=== PATIENT | female | born 1990 | race Caucasian/White ===

== ENCOUNTER 2017-05-24 00:26 | Emergency (ER) | payer SELFPAY ==
[~2017-05-24] VITALS: Ht 165.1 cm; Wt 99.8 kg
[~2017-05-24 00:26] MED LIST: AMOX500C2 PO; CALC500T7 PO; DOCU100C37 PO; FAMO20TA5 PO; HYDR-3583 PO; HYDR99LO2 TP; IBP600T1 PO; IBUP-1780 PO; NITR-65 PO; ONDA-42 SL; OXYC-465 PO; PREN-53 PO; PREN1TAB39; TRM50T PO
[2017-05-24] MEDS ORDERED: KETOROLAC 30 MG/ML VIAL IVP STA (00:53)
[2017-05-24] MEDS ORDERED: LACTATED RINGERS 1,000 ML IV ONE (00:53)
[2017-05-24] MEDS ORDERED: ONDANSETRON 4 MG/2 ML (SDV) Z0FRAN IVP ONE (01:00)
[2017-05-24 01:14] LABS: BILIRUBIN,URINE NEGATIVE (NEGATIVE); CLARITY,URINE VERY CLOUDY; COLOR,URINE YELLOW; GLUCOSE, URINE (UA) NEGATIVE (NEGATIVE); KETONES,URINE NEGATIVE (NEGATIVE); LEUKOCYTE ESTERASE ,URINE 3+ (NEGATIVE); NITRITE,URINE NEGATIVE (NEGATIVE); PH,URINE 7 (5-9); PROTEIN,URINE NEGATIVE (NEGATIVE); UROBILINOGEN,URINE NORMAL (NORMAL)
[2017-05-24 01:16] LABS: BASOPHILS % (AUTO) 0 % (0-10); EOSINOPHILS # (AUTO) 0.3 10^3/uL (0.0-0.3); EOSINOPHILS % (AUTO) 2 % (0-10); HEMATOCRIT 41 % (35-52); HEMOGLOBIN 13.3 G/DL (11.5-16.0); LYMPHOCYTES % (AUTO) 30 % (12-44); MEAN CORPUSCULAR HEMOGLOBIN 28 PG (25-34); MEAN CORPUSCULAR HGB CONC 33 G/DL (32-36); MEAN CORPUSCULAR VOLUME 84 FL (80-99); MEAN PLATELET VOLUME 10.4 FL (7.4-10.4); MONOCYTES # (AUTO) 0.8 X 10^3 (0.0-1.0); MONOCYTES % (AUTO) 6 % (0-12); NEUTROPHILS # (AUTO) 8.2 X 10^3 (1.8-7.8); NEUTROPHILS % (AUTO) 62 % (42-75); PLATELET COUNT 325 10^3/uL (130-400); RED CELL DISTRIBUTION WIDTH 13.9 % (10.0-14.5); WHITE BLOOD COUNT 13.3 10^3/uL (4.3-11.0)
--- NOTE | 2017-05-24 01:26 | ED Abdominal Pain ---
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 NO CONTROLL PCP: DR. ESPINOSA Allergies and Home Medications Allergies Coded Allergies: No Known Drug Allergies (Unverified , 09/22/14) Home Medications No Active Prescriptions or Reported Meds Review of Systems Constitutional: no symptoms reported Respiratory: No Symptoms Reported, Denies Cough, Denies Shortness of Air Cardiovascular: No Symptoms Reported, Denies Chest Pain Gastrointestinal: See HPI, Abdominal Pain, Denies Constipated, Denies Diarrhea , Nausea, Denies Vomiting Genitourinary: No Symptoms Reported Musculoskeletal: no symptoms reported, No back pain Skin: no symptoms reported Psychiatric/Neurological: No Symptoms Reported Endocrine: No Symptoms Reported Hematologic/Lymphatic: No Symptoms Reported Past Veruwab-Weekvv-Smadvf Hx Patient Social History Alcohol Use: Occasionally Uses Recreational Drug Use: No Smoking Status: Current Everyday Smoker (1 PPD) Type Used: Cigarettes 2nd Hand Smoke Exposure: Yes Recent Foreign Travel: No Contact w/Someone Who Travel: No Recent Infectious Disease Expo: No Recent Hopitalizations: No Immunizations Up To Date Tetanus Booster (TDap): Less than 5yrs Seasonal Allergies Seasonal Allergies: No Surgeries History of Surgeries: Yes (D&C; X 2) Surgeries: Section Respiratory History of Respiratory Disorde: No Cardiovascular History of Cardiac Disorders: No Neurological History of Neurological Disord: No Reproductive System : No Last Menstrual Period: May 03, 2017 Hx : 4 Hx Para: 2 Hx Total # of Abortions (Spona: 2 (WITH D&C X 1) Hx Reproductive Disorders: No Female Reproductive Disorders: Denies Genitourinary History of Genitourinary Disor: No Gastrointestinal History of Gastrointestinal Di: No Musculoskeletal History of Musculoskeletal Dis: No Endocrine History of Endocrine Disorders: No HEENT History of HEENT Disorders: No Cancer History of Cancer: No Psychosocial History of Psychiatric Problem: No Integumentary History of Skin or Integumenta: No Blood Transfusions History of Blood Disorders: No Family Medical History Significant Family History: No Pertinent Family Hx Family Medial History: Alcoholism grandparents Cardiovascular disease grandparents Diabetes mellitus grandparents FH: breast cancer 19 MOTHER Hypertension grandparents Physical Exam Vital Signs VS - Last 72 Hours, by Label 05/24/17 05/24/17 00:40 01:05 Temp 97.4 97.4 Pulse 95 Resp 18 B/P (MAP) 148/98 (115) Pulse Ox 99 O2 Delivery Room Air Capillary Refill : Less Than 3 Seconds General Appearance: obese, other (ROCKING BACK AND FORTH HOLDING RUQ) HEENT: PERRL/EOMI Respiratory: normal breath sounds, no respiratory distress, no accessory muscle use Cardiovascular: regular rate, rhythm, no murmur Gastrointestinal: normal bowel sounds, soft, no organomegaly, no pulsatile mass , No distended, No guarding, No rebound, tenderness (RUQ), No hernia, No mass Extremities: normal inspection Back: normal inspection, no CVA tenderness 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, no motor/sensory deficits, alert, normal mood/affect, oriented x 3 Skin: normal color, warm/dry, No rash Progress/Results/Core Measures Results/Orders Lab Results Laboratory Tests Test 05/24/17 01:00 05/24/17 01:05 Range/Units Urine Color YELLOW Urine Clarity VERY CLOUDY H Urine pH 7 5-9 Urine Specific [place] 1.015 L 1.016-1.022 Urine Protein NEGATIVE NEGATIVE Urine Glucose (UA) NEGATIVE NEGATIVE Urine Ketones NEGATIVE NEGATIVE Urine Nitrite NEGATIVE NEGATIVE Urine Bilirubin NEGATIVE NEGATIVE Urine Urobilinogen NORMAL NORMAL MG/DL Urine Leukocyte Esterase 3+ H NEGATIVE Urine RBC (Auto) NEGATIVE NEGATIVE Urine RBC NONE /HPF Urine WBC 2-5 /HPF Urine Squamous Epithelial Cells >50 H /HPF Urine Crystals NONE /LPF Urine Bacteria FEW H /HPF Urine Casts NONE /LPF Urine Mucus LARGE H /LPF Urine Culture Indicated NO White Blood Count 13.3 H 4.3-11.0 10^3/uL Red Blood Count 4.80 4.35-5.85 10^6/uL Hemoglobin 13.3 11.5-16.0 G/DL Hematocrit 41 35-52 % Mean Corpuscular Volume 84 80-99 FL Mean Corpuscular Hemoglobin 28 25-34 PG Mean Corpuscular Hemoglobin Concent 33 32-36 G/DL Red Cell Distribution Width 13.9 10.0-14.5 % Platelet Count 325 130-400 10^3/uL Mean Platelet Volume 10.4 7.4-10.4 FL Neutrophils (%) (Auto) 62 42-75 % Lymphocytes (%) (Auto) 30 12-44 % Monocytes (%) (Auto) 6 0-12 % Eosinophils (%) (Auto) 2 0-10 % Basophils (%) (Auto) 0 0-10 % Neutrophils # (Auto) 8.2 H 1.8-7.8 X 10^3 Lymphocytes # (Auto) 4.0 1.0-4.0 X 10^3 Monocytes # (Auto) 0.8 0.0-1.0 X 10^3 Eosinophils # (Auto) 0.3 0.0-0.3 10^3/uL Basophils # (Auto) 0.0 0.0-0.1 10^3/uL Sodium Level 140 135-145 MMOL/L Potassium Level 4.1 3.6-5.0 MMOL/L Chloride Level 108 H 98-107 MMOL/L Carbon Dioxide Level 21 21-32 MMOL/L Anion Gap 11 5-14 MMOL/L Blood Urea Nitrogen 12 7-18 MG/DL Creatinine 0.75 0.60-1.30 MG/DL Estimat Glomerular Filtration Rate > 60 BUN/Creatinine Ratio 16 Glucose Level 117 H 70-105 MG/DL Calcium Level 9.4 8.5-10.1 MG/DL Total Bilirubin 0.3 0.1-1.0 MG/DL Aspartate Amino Transf (AST/SGOT) 14 5-34 U/L Alanine Aminotransferase (ALT/SGPT) 15 0-55 U/L Alkaline Phosphatase 86 40-136 U/L Total Protein 7.1 6.4-8.2 GM/DL Albumin 3.9 3.2-4.5 GM/DL Amylase Level 53 25-125 U/L Lipase 26 8-78 U/L My Orders Orders - AMIRAH NUGENT DO Saline Lock/Iv-Start (05/24/17 00:53) Urine Bedside (05/24/17 00:53) Ct Abdomen/Pelvis W (05/24/17 00:53) Amylase (05/24/17 00:53) Cbc With Automated Diff (05/24/17 00:53) Comprehensive Metabolic Panel (05/24/17 00:53) Lipase (05/24/17 00:53) Ua Culture If Indicated (05/24/17 00:53) Abdomen/Kub 1view (05/24/17 00:53) Lactated Ringers (Lr 1000 Ml Iv Solution (05/24/17 00:53) Ondansetron Injection (Zofran Injectio (05/24/17 01:00) Ketorolac Injection (Toradol Injection) (05/24/17 00:53) Rx-Ondansetron Po (Rx-Zofran Po) (05/24/17 02:05) Rx-Hyoscyamine Tab (Rx-Levsin Sl) (05/24/17 02:05) Rx-Hydrocodone/Apap 5-325 Mg (Rx-Vicodin (05/24/17 02:15) Medications Given in ED Current Medications Medications Dose Ordered Sig/Francisco Javier Route Start Time Stop Time Status Last Admin Dose Admin Lactated Ringer's 1,000 ml @ 0 mls/hr Q0M ONCE IV 05/24/17 00:53 05/24/17 00:55 DC 05/24/17 01:05 0 MLS/HR Ondansetron HCl 4 mg ONCE ONCE IVP 05/24/17 01:00 05/24/17 01:01 DC 05/24/17 01:05 4 MG Vital Signs/I&O Vital Sign - Last 12Hours 05/24/17 05/24/17 00:40 01:05 Temp 97.4 97.4 Pulse 95 Resp 18 B/P (MAP) 148/98 (115) Pulse Ox 99 O2 Delivery Room Air Blood Pressure Mean: 115 Point of Care Testing Urine -Bedside: Negative Progress Note : Progress Note SYMPTOMS COMPLETELY RESOLVED WITH TORADOL AND ZOFRAN ABDOMEN IS NO LONGER TENDER Diagnostic Imaging Comments KUB--NO ACUTE PROCESS, PENDING RADIOLOGIST REVIEW CT ABDOMEN/PELVIS--CHOLELITHIASIS WITH MILD PERICHOLECYSTIC STRANDING. PER [facility] VIA FAX @ [phone] Reviewed: Reviewed by Me Departure Impression Impression: Primary Impression: Cholelithiasis Disposition: HOME, SELF-CARE Condition: Improved Departure-Patient Inst. Referrals: JANESSA POWELL MD, DANIEL J MD (PCP/Family) Primary Care Physician Patient Instructions: Gallstones (DC) Add. Discharge Instructions: CLEAR LIQUIDS TODAY--WATER, BROTH, JELLO, GATORADE TOMORROW IF YOU ARE BETTER, ADD BRATS DIET TO CLEAR LIQUIDS--BANANAS, RICE, APPLESAUCE, TOAST, SALTINES FOLLOW UP WITH DR. POWELL OR SURGEON OF CHOICE NEXT WEEK FOR FURTHER CARE RETURN TO ER IF WORSE All discharge instructions reviewed with patient and/or family. Voiced understanding. Scripts Hydrocodone Bit/Acetaminophen (Hydrocodone/Acetaminophen 5/325mg Tablet) 1 Tab Tab 1 EACH PO Q4H, #20 TAB Prov: AMIRAH NUGENT DO 05/24/17 Hyoscyamine Sulfate (Levsin-Sl) 0.125 Mg Tab.subl 1-2 TAB SL Q4H for Abdominal Pain, #10 TAB Prov: AMIRAH NUGENT K DO 05/24/17 Ondansetron (Zofran Odt) 4 Mg Tab.rapdis 4 MG PO Q4H for Nausea/Vomiting, #10 TAB Prov: RAFFIVERONICAA K DO 05/24/17 Pantoprazole Sodium (Protonix) 40 Mg Tablet.dr 40 MG PO DAILY, #15 TAB Prov: VERONICA NUGENTA K DO 05/24/17 RAFFIAMIRAH K May 24, 2017 01:26
[2017-05-24 01:30] LABS: BACTERIA,URINE FEW /HPF; SQUAMOUS EPITHELIAL CELL,UR >50 /HPF
[2017-05-24 01:34] LABS: ALANINE AMINOTRANSFERASE 15 U/L (0-55); ALBUMIN 3.9 GM/DL (3.2-4.5); ALKALINE PHOSPHATASE 86 U/L (40-136); AMYLASE 53 U/L (25-125); BILIRUBIN,TOTAL 0.3 MG/DL (0.1-1.0); BUN/CREATININE RATIO 16; CALCIUM 9.4 MG/DL (8.5-10.1); CARBON DIOXIDE 21 MMOL/L (21-32); CHLORIDE 108 MMOL/L (98-107); CREATININE SERUM 0.75 MG/DL (0.60-1.30); GFR ESTIMATED > 60; GLUCOSE 117 MG/DL (70-105); LIPASE 26 U/L (8-78); POTASSIUM 4.1 MMOL/L (3.6-5.0); SODIUM 140 MMOL/L (135-145); TOTAL PROTEIN 7.1 GM/DL (6.4-8.2)
[2017-05-24] MEDS ORDERED: RX-ONDANSETRON 4 MG ODT (ZOFRAN) PPK #4 PO STA (02:05)
[2017-05-24] MEDS ORDERED: RX-HYOSCYAMINE 0.125 MG SL (LEVSIN) PPK#6 SL STA (02:05)
[2017-05-24] MEDS ORDERED: ONDA4TAB8 PO (02:09)
[2017-05-24] MEDS ORDERED: PANT40TA2 PO (02:09)
[2017-05-24] MEDS ORDERED: HYOS0.1283 SL (02:09)
[2017-05-24] MEDS ORDERED: ACHD5005 PO (02:09)
[2017-05-24] MEDS ORDERED: RX-HYDROCODONE/APAP 5/325 MG #4 TAB PK PO PRN (02:15)
[2017-05-24 02:22] VITALS: BP 132/94
--- NOTE | 2017-05-24 07:12 | Diagnostic Imaging Report ---
INDICATION: Right upper quadrant pain. FINDINGS: The lung bases are clear. The bowel gas pattern is nonspecific. There is no free air. There are no abnormal abdominal calcifications. IMPRESSION: Nonspecific bowel gas pattern Dictated by: Dictated on workstation # [id number]
--- NOTE | 2017-05-24 07:48 | Diagnostic Imaging Report ---
PROCEDURE: CT abdomen and pelvis with contrast. TECHNIQUE: Multiple contiguous axial images were obtained through the abdomen and pelvis after administration of intravenous contrast. INDICATION: Right upper quadrant pain. Study compared 05/17/2007. FINDINGS: There appears to be stones within the gallbladder lumen. While the gallbladder is not pathologically dilated, the appearance raises the question of some wall thickening and there may be very mild pericholecystic edema. Acute cholecystitis in the appropriate clinical scenario could not be excluded. Consider gallbladder ultrasound as further evaluation. There is, however, no bile duct dilatation. The pancreas is unremarkable. The kidneys are unobstructed. The spleen and adrenals negative. There is no bowel obstruction. The appendix visualized and normal. There is no diverticulitis. There is collapsing and involuting follicle in the right ovary measuring 1.9 cm. Left adnexa and urinary bladder normal. Some shotty lymph nodes in the bilateral inguinal canals with no suspicious abdominal pelvic mesenteric or retroperitoneal nodes. No ascites, abscess, hematoma or fluid collection. IMPRESSION: 1. Stones within the gallbladder, questionable findings for mural edema and pericholecystic inflammation. Acute cholecystitis in the appropriate scenario could not be excluded. Consider targeted ultrasound. No bile duct dilatation. 2. No other potential acute finding was revealed at the study. Dictated by: Dictated on workstation # [id number]
== END 2017-05-24 02:16 | disposition home or self-care (01) ==
LOC: EDUNIT# 00:26 → ER 00:28
DX: K80.20 Calculus of gallbladder without cholecystitis without obstruction (principal); F17.210 Nicotine dependence, cigarettes, uncomplicated; Z87.59 Personal history of other complications of pregnancy, childbirth and the puerperium; Z80.3 Family history of malignant neoplasm of breast; Z82.49 Family history of ischemic heart disease and other diseases of the circulatory system
CPT/HCPCS: 36415; 74018; 74177; 80053; 81000; 82150; 83690; 84703; 85025; 96361; 96374; 96375

== ENCOUNTER 2018-04-12 12:08 | Emergency (ER) | payer SELFPAY ==
[~2018-04-12] VITALS: Ht 165.1 cm; Wt 99.8 kg
[~2018-04-12 12:08] MED LIST changes: +ACHD5005 PO; +HYOS0.1283 SL; +ONDA4TAB8 PO; +PANT40TA2 PO
--- NOTE | 2018-04-12 12:30 | ED EENT ---
History of Present Illness General Chief Complaint: Dental Problems/Pain Stated Complaint: TOOTH PAIN Source: patient Exam Limitations: no limitations History of Present Illness Date Seen by Provider: Apr 12, 2018 Time Seen by Provider: 12:30 Initial Comments Patient is a 27-year-old female who presents to the emergency room with complaints of left upper dental pain that started 2 months ago. She has been seen by [facility] and was told that she had a fractured tooth but they could not pull it until mid-March. She's gotten appointment with Dr. Romero on 04/14/18 to have the tooth hopefully pulled. She just reports that the pain is becoming unbearable. Denies any drainage, swelling, redness to the gums. Timing/Duration: other Location: dental Prearrival Treatment: no prearrival treatment Associated Symptoms: tooth pain Allergies and Home Medications Allergies Coded Allergies: No Known Drug Allergies (Unverified , 09/22/14) Home Medications Hydrocodone Bit/Acetaminophen 1 Tab Tab, 1 EACH PO Q4H Prescribed by: AMIRAH NUGENT on 05/24/17208 Hyoscyamine Sulfate 0.125 Mg Tab.subl, 1-2 TAB SL Q4H Prescribed by: AMIRAH NUGENT on 05/24/17208 Ondansetron 4 Mg Tab.rapdis, 4 MG PO Q4H Prescribed by: AMIRAH NUGENT on 05/24/17208 Pantoprazole Sodium 40 Mg Tablet.dr, 40 MG PO DAILY Prescribed by: AMIRAH NUGENT on 05/24/17208 Patient Home Medication List Home Medication List Reviewed: Yes Review of Systems Review of Systems Constitutional: no symptoms reported, see HPI Mouth: see HPI, pain All Other Systems Reviewed Negative Unless Noted: Yes Past Khkhprr-Jhwtix-Vtorrp Hx Past Med/Social Hx: Reviewed Nursing Past Med/Soc Hx Patient Social History Type Used: Cigarettes 2nd Hand Smoke Exposure: Yes Recent Hopitalizations: No Immunizations Up To Date Tetanus Booster (TDap): Less than 5yrs Seasonal Allergies Seasonal Allergies: No Past Medical History Surgeries: Yes (D&C; X 2) Section Respiratory: No Cardiac: No Neurological: No Reproductive Disorders: No Female Reproductive Disorders: Denies Genitourinary: No Gastrointestinal: No Musculoskeletal: No Endocrine: No HEENT: No Cancer: No Psychosocial: No Integumentary: No Blood Disorders: No Family Medical History Reviewed Nursing Family Hx Alcoholism grandparents Cardiovascular disease grandparents Diabetes mellitus grandparents FH: breast cancer 19 MOTHER Hypertension grandparents No Pertinent Family Hx Physical Exam Vital Signs Vital Signs - First Documented 04/12/18 12:18 Temp 79.4 Pulse 82 Resp 20 B/P (MAP) 139/96 (110) Pulse Ox 98 O2 Delivery Room Air Height, Weight, BMI Height: 5'5.00" Weight: 220lbs. 0oz. 99.438450vn; 38.0 BMI Method:Stated General Appearance: WD/WN, no apparent distress Mouth/Throat: pharynx normal, dental tenderness (see images/ fractured tooth) Cardiovascular: normal peripheral pulses, regular rate, rhythm, no edema, no gallop, no JVD, no murmur Respiratory: chest non-tender, lungs clear, normal breath sounds, no respiratory distress, no accessory muscle use Neurologic/Psychiatric: alert, oriented x 3 Skin: normal color, warm/dry Progress/Results/Core Measures Results/Orders My Orders Vital Signs/I&O Departure Impression Primary Impression: Fracture of tooth Disposition: 01 HOME, SELF-CARE Condition: Stable/Unchanged Departure-Patient Inst. Decision time for Depature: 12:36 Referrals: WALLACE ESPINOSA MD (PCP/Family) Primary Care Physician Patient Instructions: Fractured Tooth (DC) Add. Discharge Instructions: Keep your appointment with Dr. Romero as scheduled. Use the lidocaine soaked gauze as needed for comfort being sure not to choke or bite your tongue or gums if they become numb. Return back to the emergency room for any worsening symptoms. All discharge instructions reviewed with patient and/or family. Voiced understanding. Images Mouth/Nose 1 - Fracture Tooth ROBERT MARTINEZ Apr 12, 2018 12:30
[2018-04-12] MEDS ORDERED: LIDOCAINE 2% VISCOUS 15 ML UDC PO ONE (12:45)
[2018-04-12] MEDS ORDERED: KETOROLAC 60 MG/2 ML VIAL IM ONE (12:45)
[2018-04-12 13:28] VITALS: BP 139/96
== END 2018-04-12 13:28 | disposition home or self-care (01) ==
LOC: EDUNIT# 12:08 → ER 12:09
DX: S02.5XXA Fracture of tooth (traumatic), initial encounter for closed fracture (principal); Z77.22 Contact with and (suspected) exposure to environmental tobacco smoke (acute) (chronic); Z98.890 Other specified postprocedural states; Z82.49 Family history of ischemic heart disease and other diseases of the circulatory system; Z80.3 Family history of malignant neoplasm of breast; X58.XXXA Exposure to other specified factors, initial encounter
CPT/HCPCS: 99284

== ENCOUNTER 2019-04-30 03:55 | Emergency (ER) | payer SELFPAY ==
[~2019-04-30] VITALS: Ht 165 cm; Wt 100.0 kg
[2019-04-30] MEDS ORDERED: LACTATED RINGERS 1,000 ML IV ONE (04:24)
[2019-04-30] MEDS ORDERED: FAMOTIDINE 20MG/2ML IV (PEPCID) IV STA (04:37)
[2019-04-30 04:39] LABS: BASOPHILS % (AUTO) 0 % (0-10); EOSINOPHILS # (AUTO) 0.1 10^3/uL (0.0-0.3); EOSINOPHILS % (AUTO) 2 % (0-10); HEMATOCRIT 40 % (35-52); HEMOGLOBIN 13.2 G/DL (11.5-16.0); LYMPHOCYTES # (AUTO) 2.1 X 10^3 (1.0-4.0); LYMPHOCYTES % (AUTO) 37 % (12-44); MEAN CORPUSCULAR HEMOGLOBIN 28 PG (25-34); MEAN CORPUSCULAR HGB CONC 33 G/DL (32-36); MEAN CORPUSCULAR VOLUME 84 FL (80-99); MEAN PLATELET VOLUME 10.4 FL (7.4-10.4); MONOCYTES # (AUTO) 0.5 X 10^3 (0.0-1.0); MONOCYTES % (AUTO) 9 % (0-12); NEUTROPHILS # (AUTO) 2.9 X 10^3 (1.8-7.8); NEUTROPHILS % (AUTO) 52 % (42-75); PLATELET COUNT 209 10^3/uL (130-400); RED CELL DISTRIBUTION WIDTH 14.1 % (10.0-14.5); WHITE BLOOD COUNT 5.6 10^3/uL (4.3-11.0)
--- NOTE | 2019-04-30 04:43 | ED General ---
General Chief Complaint: General Problems/Pain Stated Complaint: UPPER ABD PAIN, COUGH Nursing Triage Note: PT PRESENTS TO THE ED C/O UPPER ABD. PAIN AND GENERALIZED MALAISE FOR THE LAST TWO WEEKS THAT IS INTERMITTENT. PT STATES HER DAUGHTER WAS RECENTLY DIAGNOSED WITH FLU TYPE B. STATES SHE HAS SIMILAR ABD. PAIN ONE YEAR AGO AND WAS TOLD HER GALBLADDER WOULD NEED TO BE REMOVED, BUT NEVER FOLLOWED UP AFTER THAT Nursing Sepsis Screen: No Definite Risk Source of Information: Patient Exam Limitations: No Limitations History of Present Illness Date Seen by Provider: Apr 30, 2019 Time Seen by Provider: 04:26 Initial Comments Here with report of fever, chills, body aches, runny nose, cough and now with epigastric abdominal pain. Has history of gallbladder disease and HIDA scan that showed gallbladder was low functioning. She has not elected to have anything done with the gallbladder yet due to cost. So far she has done okay but now she is hurting. She states that her child was diagnosed with influenza B last week. There is she believes that she has it. Onset of symptoms was Thursday, 3 days ago. She has been taking cold medicine to help with the symptoms, which has helped. Tonight she had abdominal pain and take ibuprofen that helped a little bit of she got worried and presented to the ER. She does admit that she has quite a bit of mucus in his swallowing a fair amount of it due to this illness. Timing/Duration: 2-3 Days, Getting Worse Severity: Moderate Modifying Factors: improves with Medication Associated Systoms: Cough, Fever/Chills; No Nausea/Vomiting, No Shortness of Air, No Weakness Allergies and Home Medications Allergies Coded Allergies: No Known Drug Allergies (Unverified , 09/22/14) Home Medications Hydrocodone Bit/Acetaminophen 1 Tab Tab, 1 EACH PO Q4H Prescribed by: AMIRAH NUGENT on 05/24/17208 Hyoscyamine Sulfate 0.125 Mg Tab.subl, 1-2 TAB SL Q4H Prescribed by: AMIRAH NUGENT on 05/24/17208 Ondansetron 4 Mg Tab.rapdis, 4 MG PO Q4H Prescribed by: AMIRAH NUGENT on 05/24/17208 Pantoprazole Sodium 40 Mg Tablet.dr, 40 MG PO DAILY Prescribed by: AMIRAH NUGENT on 05/24/17208 Patient Home Medication List Home Medication List Reviewed: Yes Review of Systems Review of Systems Constitutional: see HPI, chills, fever EENTM: nose congestion, throat pain Respiratory: cough; No short of breath Cardiovascular: no symptoms reported Gastrointestinal: abdominal pain (epigastric); No nausea, No vomiting Genitourinary: no symptoms reported Musculoskeletal: see HPI, muscle pain; No muscle weakness Skin: no symptoms reported Psychiatric/Neurological: No Symptoms Reported Past Gcrlwlu-Ujffkj-Zuagfn Hx Past Med/Social Hx: Reviewed Nursing Past Med/Soc Hx Patient Social History Alcohol Use: Occasionally Uses Alcohol Beverage of Choice: Beer Recreational Drug Use: No Smoking Status: Current Everyday Smoker Type Used: Cigarettes 2nd Hand Smoke Exposure: Yes Recent Foreign Travel: No Contact w/Someone Who Travel: No Recent Infectious Disease Expo: No Recent Hopitalizations: No Immunizations Up To Date Tetanus Booster (TDap): Less than 5yrs PED Vaccines UTD: Yes Seasonal Allergies Seasonal Allergies: No Past Medical History Surgeries: Yes (D&C; X 2) Section Respiratory: No Cardiac: No Neurological: No : No Last Menstrual Period: Apr 15, 2019 Reproductive Disorders: No Female Reproductive Disorders: Denies Genitourinary: No Gastrointestinal: No Musculoskeletal: No Endocrine: No HEENT: No Cancer: No Psychosocial: No Integumentary: No Blood Disorders: No Family Medical History Reviewed Nursing Family Hx Alcoholism grandparents Cardiovascular disease grandparents Diabetes mellitus grandparents FH: breast cancer 19 MOTHER Hypertension grandparents No Pertinent Family Hx Physical Exam Vital Signs Vital Signs - First Documented 04/30/19 04:13 Temp 36.8 Pulse 87 Resp 20 B/P (MAP) 155/97 (116) Pulse Ox 99 O2 Delivery Room Air Capillary Refill : Less Than 3 Seconds Height, Weight, BMI Height: 5'5.00" Weight: 220lbs. 0oz. 99.178838pa; 36.00 BMI Method:Stated General Appearance: No Apparent Distress, WD/WN HEENT: PERRL/EOMI, Pharyngeal Erythema, Other (bilateral nasal congestion with clear rhinorrhea moderate erythema) Neck: Non Tender, Supple Respiratory: Lungs Clear, Normal Breath Sounds Cardiovascular: Regular Rate, Rhythm, No Murmur Gastrointestinal: Normal Bowel Sounds, Non Tender, Soft Neurologic/Psychiatric: Alert, Oriented x3 Skin: Normal Color, Warm/Dry Progress/Results/Core Measures Suspected Sepsis Recent Fever Within 48 Hours: No Infection Criteria Present: None New/Unexplained Altered Menta: No Sepsis Screen: No Definite Risk SIRS Temperature: Pulse: 87 Respiratory Rate: 20 Laboratory Tests 04/30/19 04:30: White Blood Count 5.6 Blood Pressure 155 /97 Mean: 116 Laboratory Tests 04/30/19 04:30: Creatinine 0.77, Platelet Count 209, Total Bilirubin 0.3 Results/Orders Lab Results Laboratory Tests Test 04/30/19 04:30 Range/Units White Blood Count 5.6 4.3-11.0 10^3/uL Red Blood Count 4.78 4.35-5.85 10^6/uL Hemoglobin 13.2 11.5-16.0 G/DL Hematocrit 40 35-52 % Mean Corpuscular Volume 84 80-99 FL Mean Corpuscular Hemoglobin 28 25-34 PG Mean Corpuscular Hemoglobin Concent 33 32-36 G/DL Red Cell Distribution Width 14.1 10.0-14.5 % Platelet Count 209 130-400 10^3/uL Mean Platelet Volume 10.4 7.4-10.4 FL Neutrophils (%) (Auto) 52 42-75 % Lymphocytes (%) (Auto) 37 12-44 % Monocytes (%) (Auto) 9 0-12 % Eosinophils (%) (Auto) 2 0-10 % Basophils (%) (Auto) 0 0-10 % Neutrophils # (Auto) 2.9 1.8-7.8 X 10^3 Lymphocytes # (Auto) 2.1 1.0-4.0 X 10^3 Monocytes # (Auto) 0.5 0.0-1.0 X 10^3 Eosinophils # (Auto) 0.1 0.0-0.3 10^3/uL Basophils # (Auto) 0.0 0.0-0.1 10^3/uL Sodium Level 139 135-145 MMOL/L Potassium Level 3.8 3.6-5.0 MMOL/L Chloride Level 108 H 98-107 MMOL/L Carbon Dioxide Level 20 L 21-32 MMOL/L Anion Gap 11 5-14 MMOL/L Blood Urea Nitrogen 4 L 7-18 MG/DL Creatinine 0.77 0.60-1.30 MG/DL Estimat Glomerular Filtration Rate > 60 BUN/Creatinine Ratio 5 Glucose Level 103 70-105 MG/DL Calcium Level 9.7 8.5-10.1 MG/DL Corrected Calcium 9.7 8.5-10.1 MG/DL Total Bilirubin 0.3 0.1-1.0 MG/DL Aspartate Amino Transf (AST/SGOT) 19 5-34 U/L Alanine Aminotransferase (ALT/SGPT) 19 0-55 U/L Alkaline Phosphatase 75 40-136 U/L C-Reactive Protein High Sensitivity 1.45 H 0.00-0.50 MG/DL Total Protein 6.8 6.4-8.2 GM/DL Albumin 4.0 3.2-4.5 GM/DL Serum Test, Qualitative NEGATIVE NEGATIVE Micro Results Microbiology 04/30/19 Influenza Types A,B Antigen (VERONIQUE) - Final, Complete My Orders Orders - SHAHANA PATEL MD Influenza A And B Antigens (04/30/19 04:12) Cbc With Automated Diff (04/30/19 04:24) Comprehensive Metabolic Panel (04/30/19 04:24) Hs C Reactive Protein (04/30/19 04:24) Hcg,Qualitative Serum (04/30/19 04:24) Ed Iv/Invasive Line Start (04/30/19 04:24) Lactated Ringers (Lr 1000 Ml Iv Solution (04/30/19 04:24) Famotidine Injection (Pepcid Injection) (04/30/19 04:37) Medications Given in ED Current Medications Medications Dose Ordered Sig/Francisco Javier Route Start Time Stop Time Status Last Admin Dose Admin Lactated Ringer's 1,000 ml @ 0 mls/hr Q0M ONCE IV 04/30/19 04:24 04/30/19 04:26 DC 04/30/19 05:00 1,000 MLS/HR Vital Signs/I&O 04/30/19 04:13 Temp 36.8 Pulse 87 Resp 20 B/P (MAP) 155/97 (116) Pulse Ox 99 O2 Delivery Room Air Capillary Refill : Less Than 3 Seconds Blood Pressure Mean: 116 Progress Note : Progress Note Seen and evaluated. Influenza screen, IV, labs and LR 1 L bolus. We will check labs due to concerns of gallbladder disease. Afebrile currently after ibuprofen earlier. Pepcid 20 mg IV ordered. Influenza b positive noted. She is outside of treatment window and she is not in the high risk category per CDC guidelines currently. Monitor patient. 0520: Overall feeling better. Discharged home with return precautions. Patient verbalize understanding instructions and agreement with plan. Departure Impression Primary Impression: Influenza B Additional Impression: Epigastric abdominal pain Disposition: HOME, SELF-CARE Condition: Improved Departure-Patient Inst. Decision time for Depature: 05:25 Referrals: KIRA EVANS DANIEL J MD (PCP/Family) Primary Care Physician Patient Instructions: Acute Abdomen (Belly Pain), Adult (DC), Flu, Adult (DC) Add. Discharge Instructions: All discharge instructions reviewed with patient and/or family. Voiced unders tanding. You may take Pepcid or the generic famotidine 20 mg once or twice daily for the next several days and then daily thereafter as needed to decrease stomach upset and pain. You may take Tylenol/acetaminophen 1000 mg every 8 hours as needed for pain. Do not take this with the [id number]-[id number] cold medicine as they both have acetaminophen in them. May take ibuprofen 600 mg every 8 hours as needed for fever or pain. Drink plenty of fluids. Get some rest. Follow-up with your Dr. in a few days for recheck as needed. If you have continue concerns about her gallbladder, he may follow-up with Dr. Evans or surgeon of your choosing. Work/School Note: Work Release Form Date Seen in the Emergency Department: Apr 30, 2019 Return to Work: May 02, 2019 Restrictions: Return-No Fever (24hrs) SHAHANA PATEL MD Apr 30, 2019 04:43
[2019-04-30 05:01] LABS: ALANINE AMINOTRANSFERASE 19 U/L (0-55); ALKALINE PHOSPHATASE 75 U/L (40-136); BILIRUBIN,TOTAL 0.3 MG/DL (0.1-1.0); BUN/CREATININE RATIO 5; CALCIUM 9.7 MG/DL (8.5-10.1); CARBON DIOXIDE 20 MMOL/L (21-32); CHLORIDE 108 MMOL/L (98-107); CREATININE SERUM 0.77 MG/DL (0.60-1.30); GFR ESTIMATED > 60; GLUCOSE 103 MG/DL (70-105); POTASSIUM 3.8 MMOL/L (3.6-5.0); SODIUM 139 MMOL/L (135-145); TOTAL PROTEIN 6.8 GM/DL (6.4-8.2)
[2019-04-30 05:39] VITALS: BP 131/85
== END 2019-04-30 05:46 | disposition home or self-care (01) ==
LOC: EDUNIT# 03:55 → ER 03:59
DX: J10.1 Influenza due to other identified influenza virus with other respiratory manifestations (principal); R10.13 Epigastric pain; F17.210 Nicotine dependence, cigarettes, uncomplicated; Z82.49 Family history of ischemic heart disease and other diseases of the circulatory system; Z80.3 Family history of malignant neoplasm of breast
CPT/HCPCS: 36415; 80053; 84703; 85025; 86141; 87804

== ENCOUNTER 2019-07-02 02:37 | Observation (INO) | payer SELFPAY ==
[~2019-07-02] VITALS: Ht 165.1 cm; Wt 107.7 kg
[2019-07-02] VITALS (11 sets, daily range): BP systolic 101–123; BP diastolic 58–77
[2019-07-02] MEDS ORDERED: NS IV 1000 ML 1,000 ML IV SCH (02:56)
[2019-07-02] MEDS ORDERED: FAMOTIDINE 20MG/2ML IV (PEPCID) IV STA (02:56)
[2019-07-02 03:06] LABS: BILIRUBIN,URINE NEGATIVE (NEGATIVE); CLARITY,URINE CLOUDY; COLOR,URINE YELLOW; GLUCOSE, URINE (UA) NEGATIVE (NEGATIVE); KETONES,URINE NEGATIVE (NEGATIVE); LEUKOCYTE ESTERASE ,URINE 2+ (NEGATIVE); NITRITE,URINE NEGATIVE (NEGATIVE); PROTEIN,URINE NEGATIVE (NEGATIVE)
--- NOTE | 2019-07-02 03:07 | ED Abdominal Pain ---
General Chief Complaint: Abdominal/GI Problems Stated Complaint: GALLBLADDER ATTACK,COUGH Source of Information: Patient Exam Limitations: No Limitations History of Present Illness Date Seen by Provider: Jul 02, 2019 Time Seen by Provider: 02:40 Initial Comments Patient presents ER by private conveyance with chief complaint of epigastric and right upper quadrant abdominal pain starting about 12:30, 2-1/2 hours prior to arrival. She's having some nausea as well as diarrhea but no vomiting. No fevers or chills. She was diagnosed with all stones 2 years ago and sent to follow-up with the local general surgeon. She says she never followed up because she did not have insurance. She says it intermittently affects her about once a month and she had an episode a few days ago after eating salad. She had salad again last night and then had symptoms. She took some Gas-X as well as omeprazole with little relief of her symptoms. She says tonight it is about a 5 out of 10 at rest but it spikes to about a 10 out of 10 especially if palpated. She does follow up with Dr. Espinosa for primary care. She does not take any medicines or control routinely. Allergies and Home Medications Allergies Coded Allergies: No Known Drug Allergies (Unverified , 09/22/14) Home Medications No Active Prescriptions or Reported Meds Patient Home Medication List Home Medication List Reviewed: Yes Review of Systems Review of Systems Constitutional: No chills, No fever EENTM: No Blurred Vision, No Double Vision Respiratory: Denies Cough, Denies Shortness of Air Cardiovascular: Denies Chest Pain, Denies Edema Gastrointestinal: Denies Abdomen Distended; Abdominal Pain; Denies Constipated; Diarrhea, Nausea; Denies Vomiting Genitourinary: Denies Burning, Denies Discharge Musculoskeletal: No back pain, No joint pain Skin: No pruritus, No rash Psychiatric/Neurological: Denies Headache, Denies Numbness All Other Systems Reviewed Negative Unless Noted: Yes Past Dzwnqbj-[id number]-Qoixkc Hx Patient Social History Alcohol Use: Rarely Uses Number of Drinks Today: AA Alcohol Beverage of Choice: Beer Recreational Drug Use: No Smoking Status: Current Everyday Smoker Type Used: Cigarettes 2nd Hand Smoke Exposure: Yes Recent Foreign Travel: No Contact w/Someone Who Travel: No Recent Hopitalizations: No Physical Abuse: No Sexual Abuse: No Mistreated: No Fear: No Immunizations Up To Date Tetanus Booster (TDap): Less than 5yrs PED Vaccines UTD: Yes Seasonal Allergies Seasonal Allergies: No Past Medical History Surgeries: Yes (D&C; X 2) Section Respiratory: No Cardiac: No Neurological: No Reproductive Disorders: No Female Reproductive Disorders: Denies Genitourinary: No Gastrointestinal: No Musculoskeletal: No Endocrine: No HEENT: No Cancer: No Psychosocial: No Integumentary: No Blood Disorders: No Family Medical History Alcoholism grandparents Cardiovascular disease grandparents Diabetes mellitus grandparents FH: breast cancer 19 MOTHER Hypertension grandparents No Pertinent Family Hx Physical Exam Vital Signs Vital Signs - First Documented 07/02/19 02:48 Temp 36.6 Pulse 86 Resp 18 B/P (MAP) 136/97 (110) Pulse Ox 98 O2 Delivery Room Air Capillary Refill : Height/Weight/BMI Height: 5'5.00" Weight: 220lbs. 0oz. [id number]; 36.00 BMI Method:Stated General Appearance: WD/WN, mild distress HEENT: PERRL/EOMI, pharynx normal Neck: full range of motion, supple Respiratory: lungs clear, normal breath sounds, no respiratory distress, no accessory muscle use Cardiovascular: normal peripheral pulses, regular rate, rhythm Peripheral Pulses: 2+ Radial Pulses (R), 2+ Radial Pulses (L) Gastrointestinal: normal bowel sounds, soft, guarding; No rebound; tenderness ( epigastric and right upper quadrant), other (Sanford's sign positive) Extremities: normal range of motion, normal capillary refill Neurologic/Psychiatric: alert, normal mood/affect, oriented x 3 Skin: normal color, warm/dry Progress/Results/Core Measures Results/Orders Lab Results Laboratory Tests Test 07/02/19 02:55 07/02/19 03:10 Range/Units Urine Color YELLOW Urine Clarity CLOUDY Urine pH 7.0 5-9 Urine Specific [place] 1.020 1.016-1.022 Urine Protein NEGATIVE NEGATIVE Urine Glucose (UA) NEGATIVE NEGATIVE Urine Ketones NEGATIVE NEGATIVE Urine Nitrite NEGATIVE NEGATIVE Urine Bilirubin NEGATIVE NEGATIVE Urine Urobilinogen 0.2 < = 1.0 MG/DL Urine Leukocyte Esterase 2+ H NEGATIVE Urine RBC (Auto) NEGATIVE NEGATIVE Urine RBC NONE /HPF Urine WBC 2-5 /HPF Urine Squamous Epithelial Cells 5-10 /HPF Urine Crystals NONE /LPF Urine Bacteria LARGE H /HPF Urine Casts NONE /LPF Urine Mucus MODERATE H /LPF Urine Culture Indicated YES White Blood Count 14.8 H 4.3-11.0 10^3/uL Red Blood Count 5.00 4.35-5.85 10^6/uL Hemoglobin 13.9 11.5-16.0 G/DL Hematocrit 43 35-52 % Mean Corpuscular Volume 86 80-99 FL Mean Corpuscular Hemoglobin 28 25-34 PG Mean Corpuscular Hemoglobin Concent 32 32-36 G/DL Red Cell Distribution Width 14.0 10.0-14.5 % Platelet Count 335 130-400 10^3/uL Mean Platelet Volume 10.4 7.4-10.4 FL Neutrophils (%) (Auto) 60 42-75 % Lymphocytes (%) (Auto) 31 12-44 % Monocytes (%) (Auto) 7 0-12 % Eosinophils (%) (Auto) 2 0-10 % Basophils (%) (Auto) 0 0-10 % Neutrophils # (Auto) 8.9 H 1.8-7.8 X 10^3 Lymphocytes # (Auto) 4.6 H 1.0-4.0 X 10^3 Monocytes # (Auto) 1.0 0.0-1.0 X 10^3 Eosinophils # (Auto) 0.3 0.0-0.3 10^3/uL Basophils # (Auto) 0.0 0.0-0.1 10^3/uL Sodium Level 140 135-145 MMOL/L Potassium Level 3.7 3.6-5.0 MMOL/L Chloride Level 108 H 98-107 MMOL/L Carbon Dioxide Level 23 21-32 MMOL/L Anion Gap 9 5-14 MMOL/L Blood Urea Nitrogen 7 7-18 MG/DL Creatinine 0.80 0.60-1.30 MG/DL Estimat Glomerular Filtration Rate > 60 BUN/Creatinine Ratio 9 Glucose Level 92 70-105 MG/DL Calcium Level 9.3 8.5-10.1 MG/DL Corrected Calcium 9.1 8.5-10.1 MG/DL Total Bilirubin 0.5 0.1-1.0 MG/DL Aspartate Amino Transf (AST/SGOT) 13 5-34 U/L Alanine Aminotransferase (ALT/SGPT) 15 0-55 U/L Alkaline Phosphatase 79 40-136 U/L C-Reactive Protein High Sensitivity 0.92 H 0.00-0.50 MG/DL Total Protein 7.1 6.4-8.2 GM/DL Albumin 4.2 3.2-4.5 GM/DL Lipase 37 8-78 U/L My Orders Orders - JOANNA MARTINES Ed Iv/Invasive Line Start (07/02/19 02:56) Ns Iv 1000 Ml (Sodium Chloride 0.9%) (07/02/19 02:56) Famotidine Injection (Pepcid Injection) (07/02/19 02:56) Cbc With Automated Diff (07/02/19 02:56) Comprehensive Metabolic Panel (07/02/19 02:56) Hs C Reactive Protein (07/02/19 02:56) Lipase (07/02/19 02:56) Ua Culture If Indicated (07/02/19 02:56) Urine Bedside (07/02/19 02:56) Ct Abdomen/Pelvis W (07/02/19 02:56) Urine Culture (07/02/19 02:55) Hyoscyamine Sl Tablet (Levsin Sl Tablet) (07/02/19 04:30) Medications Given in ED Current Medications Medications Dose Ordered Sig/Francisco Javier Route Start Time Stop Time Status Last Admin Dose Admin Hyoscyamine Sulfate 0.125 mg ONCE ONCE PO 07/02/19 04:30 07/02/19 04:31 DC 07/02/19 04:28 0.125 MG Vital Signs/I&O 07/02/19 02:48 Temp 36.6 Pulse 86 Resp 18 B/P (MAP) 136/97 (110) Pulse Ox 98 O2 Delivery Room Air Progress Progress Note #1: Time: 03:06 Progress Note We'll start with Toradol and Zofran for her symptoms. A liter fluids. Since she has positive Sanford sign and a history of gallstones we'll get a CT scan to evaluate for ductal dilatation or cholecystitis. She has aseptic vital signs but a tender abdomen. We'll get a lipase labs urinalysis. She has a negative bedside test. We'll give her Pepcid. If this doesn't help with her pain we can try Levsin and/or GI cocktail. Choledocholithiasis versus biliary colic. We reemphasized education on appropriate diet and management of symptoms. Aseptic vital signs. Progress Note #2: Time: 05:41 Progress Note Discussed case imaging and likelihood that this represents cholecystitis given her history of cholelithiasis. The patient says her pain and symptoms are only getting worse and were quite severe tonight. We have encouraged her to pursue surgical intervention or we could send her to [facility] to get an ultrasound this morning. Patient would prefer to go the surgical route. Diagnostic Imaging Diagonstic Imaging: CT (with IV contrast) Plain Films/CT/US/NM/MRI: abdomen, pelvis Comments The gallbladder wall demonstrates enhancement and some thickening with surrounding fat stranding. Recommend right upper quadrant ultrasound to rule out cholecystitis. No stone seen by CT. Hepatosplenomegaly. Mild hepatic steatosis. Reviewed: Reviewed [place] Study, Reviewed by Me Departure Communication (Admissions) Time/Spoke to Admitting Phy: 05:45 Discussed the case with Dr. Sheffield, General Surgery. He says put her into the hospital some pain management, nothing by mouth and he would come see her and he would plan on having her gallbladder out today. Impression Primary Impression: Cholecystitis with cholelithiasis Qualified Codes: K80.12 - Calculus of gallbladder with acute and chronic cholecystitis without obstruction Disposition: 01 HOME, SELF-CARE Condition: Improved Admissions Decision to Admit Reason: Admit from ER (General) Decision to Admit/Date: Jul 02, 2019 Time/Decision to Admit Time: 05:36 Departure-Patient Inst. Referrals: WALLACE ESPINOSA MD (PCP) Primary Care Physician Scripts No Active Prescriptions or Reported Meds JOANNA MARTINES Jul 02, 2019 03:07
[2019-07-02 03:13] LABS: BACTERIA,URINE LARGE /HPF
[2019-07-02 03:19] LABS: BASOPHILS % (AUTO) 0 % (0-10); EOSINOPHILS # (AUTO) 0.3 10^3/uL (0.0-0.3); EOSINOPHILS % (AUTO) 2 % (0-10); HEMATOCRIT 43 % (35-52); HEMOGLOBIN 13.9 G/DL (11.5-16.0); LYMPHOCYTES # (AUTO) 4.6 X 10^3 (1.0-4.0); LYMPHOCYTES % (AUTO) 31 % (12-44); MEAN CORPUSCULAR HEMOGLOBIN 28 PG (25-34); MEAN CORPUSCULAR HGB CONC 32 G/DL (32-36); MEAN CORPUSCULAR VOLUME 86 FL (80-99); MEAN PLATELET VOLUME 10.4 FL (7.4-10.4); MONOCYTES % (AUTO) 7 % (0-12); NEUTROPHILS # (AUTO) 8.9 X 10^3 (1.8-7.8); NEUTROPHILS % (AUTO) 60 % (42-75); PLATELET COUNT 335 10^3/uL (130-400); WHITE BLOOD COUNT 14.8 10^3/uL (4.3-11.0)
[2019-07-02 03:38] LABS: ALANINE AMINOTRANSFERASE 15 U/L (0-55); ALBUMIN 4.2 GM/DL (3.2-4.5); ALKALINE PHOSPHATASE 79 U/L (40-136); BILIRUBIN,TOTAL 0.5 MG/DL (0.1-1.0); BUN/CREATININE RATIO 9; CALCIUM 9.3 MG/DL (8.5-10.1); CARBON DIOXIDE 23 MMOL/L (21-32); CHLORIDE 108 MMOL/L (98-107); GFR ESTIMATED > 60; GLUCOSE 92 MG/DL (70-105); LIPASE 37 U/L (8-78); POTASSIUM 3.7 MMOL/L (3.6-5.0); SODIUM 140 MMOL/L (135-145); TOTAL PROTEIN 7.1 GM/DL (6.4-8.2)
[2019-07-02] MEDS ORDERED: HYOSCYAMINE 0.125 MG (LEVSIN) TAB PO ONE (04:30)
--- OUTSIDE RECORDS SUMMARY | 2019-07-02 06:02 | XMS REPORT ---
Author Elsa Weeks Organization [employer] Address Unknown Phone Unavailable Care Team Providers Care Detacker Name Role Phone SUMAN BEARDEN CP Unavailable Allergies, Adverse Reactions, Alerts Substance Reaction Event Type N.K.D.A. Info Not Available Non Drug Allergy Problems Problem Type Condition ICD-9 Code Onset Dates Condition Statu s Assessment Tobacco abuse counseling V65.42 Act carlota Assessment Cough 786.2 Active Medications Medication Code System Code Instructions Start Date End Date Status Dosage Doxycycline Hyclate [facility] [address]-83 100 MG Orally every 12 h rs Dec 06, 2014 Dec 16, 2014 1 capsule Albuterol Sulfate HFA [facility] [address]-66 108 (90 Ba se) MCG/ACT Inhalation every 4 hrs Dec 06, 2014 2 puffs Procedures Procedure Coding System Code Date Office Visit, New Pt., Level 3 CPT-4 21609 A 2014 Vital Signs Date/Time: Dec 06, 2014 Temperature 96.8 F Weight 230.2 lbs Height 65 in BMI 38.30 Index Blood Pressure Diastolic 78 mmHg Blood Pressure Systolic 122 mmHg Cardiac Monitoring Heart Rate 100 bpm Results No Known Results Summary Purpose [employer] Submission
--- OUTSIDE RECORDS SUMMARY | 2019-07-02 06:02 | XMS REPORT | Continuity of Care Document ---
Author Organization Unknown Address Unknown Phone Unavailable Allergies Active Description Code Type Severity Reaction Onset Reported/Identified Relationship to Patient Clinical Status Yes NKDA NKDA Mild N/A 11/23/2008 Yes No Known Drug Allergies [id number] Drug Allergy Unknown N/A 09/22/2014 Medications There is no data. 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 9 12/07/2012 SIGRID BEAN, SAMIR R Ot 782. 1 09/22/2014 Ot 649.63 09/22/2014 Ot 649.63 09/22/2014 ANDRE HERNANDEZ DO Ot 305.1 TOBACCO USE DISORDER 09/22/2014 ANDRE HERNANDEZ DO Ot 535.30 ALCOHOLIC GASTRITIS,W/O MENTION OF HEMOR 09/22/2014 ANDRE HERNANDEZ DO Ot 789.00 ABDOMINAL PAIN, UNSPECIFIED SITE 12/29/2014 JACQUELIN ROSALES APRN Ot 616 .0 CERVICITIS 12/29/2014 JACQUELIN ROSALES GAS OPERATOR Ot 640.03 THREATEN ABORT-ANTEPART 12/29/2014 JACQUELIN ROSALES GAS OPERATOR Ot 646.63 INFECTION-ANTEPARTUM 01/07/2015 Ot 649.63 01/07/2015 Ot 649.63 02/06/2015 WALLACE ESPINOSA MD, Ot V28. 81 02/13/2015 WALLACE ESPINOSA MD, Ot V28. 81 04/18/2015 WALLACE ESPINOSA MD, Ot V28. 81 05/01/2015 WALLACE ESPINOSA MD, Ot Z36 08/01/2015 WALLACE ESPINOSA MD, Ot V28. 81 ENCOUNTER FOR ANATOMIC SURVEY 08/01/2015 WALLACE ESPINOSA MD, Ot Z36 ENCOUNTER FOR SCREENING OF MOT 08/02/2015 LINDA PAREDES MD Ot O28.8 OTHER ABNORMAL FINDINGS ON SCR 08/02/2015 LINDA PAREDES MD, Ot Z3A.00 WEEKS OF GESTATION OF NOT SPEC 08/07/2015 LINDA PAREDES MD, Ot O28.8 OTHER ABNORMAL FINDINGS ON SCR 08/07/2015 LINDA PAREDES MD, Ot Z3A.00 WEEKS OF GESTATION OF NOT SPEC 08/14/2015 WALLACE ESPINOSA MD Ot V28. 81 ENCOUNTER FOR ANATOMIC SURVEY 08/14/2015 WALLACE ESPINOSA MD, Ot Z36 ENCOUNTER FOR SCREENING OF MOT 08/14/2015 LINDA PAREDES MD, Ot O28.8 OTHER ABNORMAL FINDINGS ON SCR 08/14/2015 LINDA PAREDES MD, Ot Z3A.00 WEEKS OF GESTATION OF NOT SPEC 08/14/2015 LINDA PAREDES MD Ot O34.21 MATERNAL CARE FOR SCAR FROM PREVIOUS ALE 08/14/2015 LINDA PAREDES MD, Ot Z01.812 ENCOUNTER FOR PREPROCEDURAL LABORATORY E 08/14/2015 LINDA PAREDES MD, Ot Z11.2 ENCOUNTER FOR SCREENING FOR OTHER BACTER 08/14/2015 LINDA PAREDES MD, Ot O28.8 OTHER ABNORMAL FINDINGS ON SCR 08/14/2015 LINDA PAREDES MD, Ot Z3A.00 WEEKS OF GESTATION OF NOT SPEC 08/15/2015 WALLACE ESPINOSA MD Ot V28. 81 ENCOUNTER FOR ANATOMIC SURVEY 08/15/2015 WALLACE ESPINOSA MD Ot Z36 ENCOUNTER FOR SCREENING OF MOT 08/15/2015 LINDA PAREDES MD, Ot O28.8 OTHER ABNORMAL FINDINGS ON SCR 08/15/2015 LINDA PAREDES MD, Ot Z3A.00 WEEKS OF GESTATION OF NOT SPEC 08/15/2015 LINDA PAREDES MD, Ot O34.21 MATERNAL CARE FOR SCAR FROM PREVIOUS ALE 08/15/2015 LINDA PAREDES MD, Ot Z01.812 ENCOUNTER FOR PREPROCEDURAL LABORATORY E 08/15/2015 LINDA PAREDES MD, Ot Z11.2 ENCOUNTER FOR SCREENING FOR OTHER BACTER 08/17/2015 LINDA PAREDES MD, Ot O14.13 SEVERE PRE-ECLAMPSIA, THIRD TRIMESTER 08/17/2015 LINDA PAREDES MD, Ot O34.21 MATERNAL CARE FOR SCAR FROM PREVIOUS ALE 08/17/2015 LINDA PAREDES MD, Ot Z23 ENCOUNTER FOR IMMUNIZATION 08/17/2015 LINDA PAREDES MD, Ot Z37.0 SINGLE LIVE 08/17/2015 LINDA PAREDES MD, Ot Z3A.38 38 WEEKS GESTATION OF 08/20/2015 LINDA PAREDES MD, Ot O34.21 MATERNAL CARE FOR SCAR FROM PREVIOUS ALE 08/20/2015 LINDA PAREDES MD, Ot Z01.812 ENCOUNTER FOR PREPROCEDURAL LABORATORY E 08/20/2015 LINDA PAREDES MD, Ot Z11.2 ENCOUNTER FOR SCREENING FOR OTHER BACTER 05/24/2017 AMIRAH NUGENT DO, Ot F17.210 NICOTINE DEPENDENCE, CIGARETTES, UNCOMPL 05/24/2017 AMIRAH NUGENT DO, Ot K80.20 CALCULUS OF GALLBLADDER W/O CHOLECYSTITI 05/24/2017 AMIRAH NUGENT DO Ot R10.11 RIGHT UPPER QUADRANT PAIN 05/24/2017 AMIRAH NUGENT DO, Ot Z80.3 FAMILY HISTORY OF MALIGNANT NEOPLASM OF 05/24/2017 AMIRAH NUGENT DO Perla Ot Z82.49 FAMILY HX OF ISCHEM HEART DIS AND OTH DI 05/24/2017 AMIRAH NUGENT DO Ot Z87.59 PERSONAL HISTORY OF COMP OF PREG, CHLDBR 05/26/2017 AMIRAH NUGENT DO Ot F17.210 NICOTINE DEPENDENCE, CIGARETTES, UNCOMPL 05/26/2017 AMIRAH NUGENT DO K Ot K80.20 CALCULUS OF GALLBLADDER W/O CHOLECYSTITI 05/26/2017 RAFFI HUA AMIRAH Perla Ot R10.11 RIGHT UPPER QUADRANT PAIN 05/26/2017 RAFFI AMIRAH HUA Ot Z80.3 FAMILY HISTORY OF MALIGNANT NEOPLASM OF 05/26/2017 AMIRAH NUGENT DO Ot Z82.49 FAMILY HX OF ISCHEM HEART DIS AND OTH DI 05/26/2017 AMIRAH NUGENT DO Ot Z87.59 PERSONAL HISTORY OF COMP OF PREG, CHLDBR 04/12/2018 ROBERT MARTINEZ Ot K08.89 OTHER SPECIFIED DISORDERS OF TEETH AND S 04/12/2018 ROBERT MARTINEZ Ot S02.5XXA FRACTURE OF TOOTH (TRAUMATIC), INIT FOR 04/12/2018 ROBERT MARTINEZ Ot X58.XXXA EXPOSURE TO OTHER SPECIFIED FACTORS, INI 04/12/2018 ROBERT MARTINEZ Ot Z77.22 CNTCT W AND EXPSR TO ENVIRON TOBACCO SMO 04/12/2018 ROBERT MARTINEZ Ot Z80.3 FAMILY HISTORY OF MALIGNANT NEOPLASM OF 04/12/2018 ROBERT MARTINEZ Ot Z82.49 FAMILY HX OF ISCHEM HEART DIS AND OTH DI 04/12/2018 ROBERT MARTINEZ Ot Z98.890 OTHER SPECIFIED POSTPROCEDURAL STATES 04/15/2018 ROBERT MARTINEZ Ot K08.89 OTHER SPECIFIED DISORDERS OF TEETH AND S 04/15/2018 ROBERT MARTINEZ Ot S02.5XXA FRACTURE OF TOOTH (TRAUMATIC), INIT FOR 04/15/2018 ROBERT MARTINEZ Ot X58.XXXA EXPOSURE TO OTHER SPECIFIED FACTORS, INI 04/15/2018 ROBERT MARTINEZ Ot Z77.22 CNTCT W AND EXPSR TO ENVIRON TOBACCO SMO 04/15/2018 ROBERT MARTINEZ Ot Z80.3 FAMILY HISTORY OF MALIGNANT NEOPLASM OF 04/15/2018 ROBERT MARTINEZ Ot Z82.49 FAMILY HX OF ISCHEM HEART DIS AND OTH DI 04/15/2018 ROBERT MARTINEZ Ot Z98.890 OTHER SPECIFIED POSTPROCEDURAL STATES 05/03/2019 SHAHANA PATEL MD Ot F17.210 NICOTINE DEPENDENCE, CIGARETTES, UNCOMPL 05/03/2019 SHAHANA PATEL MD Ot J10.1 FLU DUE TO OTH IDENT INFLUENZA VIRUS W O 05/03/2019 SHAHANA PATEL MD Ot R05 COUGH 05/03/2019 SHAHANA PATEL MD, Ot R10.13 EPIGASTRIC PAIN 05/03/2019 SHAHANA PATEL MD Ot Z80.3 FAMILY HISTORY OF MALIGNANT NEOPLASM OF 05/03/2019 SHAHANA PATEL MD Ot Z82.49 FAMILY HX OF ISCHEM HEART DIS AND OTH DI Procedures Code Description Performed By Per formed On 74.1 01/16/2011 [id number] 08/15/2015 Results Test Result Range Complete urinalysis with reflex to cultu re - 05/24/17 01:00 Urine color determination YELLOW NRG Urine clarity determination VERY CLOUDY NRG Urine pH measurement by test strip 7 5-9 Specific gravity of urine by test strip 1.015 1.016-1.022 Urine protein assay by test strip, semi-quantitative NEGATIVE NEGATIVE Urine glucose detection by automated test strip NE GATIVE NEGATIVE Erythrocytes detection in urine sediment by light micr oscopy NEGATIVE NEGATIVE Urine ketones detection by automated test strip NE GATIVE NEGATIVE Urine nitrite detection by test strip NEGATIVE NEGATIVE Urine total bilirubin detection by test strip NEGA TIVE NEGATIVE Urine urobilinogen measurement by automated test strip (mass/volume) NORMAL NORMAL Urine leukocyte esterase detection by dipstick 3+ NEGATIVE Automated urine sediment erythrocyte cou nt by microscopy (number/high power field) NONE NRG Automated urine sediment leukocyte count by microscopy (number/high power field) [HPF] NRG Bacteria detection in urine sediment by light microsco py FEW NRG Squamous epithelial cells detection in u rine sediment by light microscopy >50 NRG Crystals detection in urine sediment by light microsco py NONE NRG Casts detection in urine sediment by light microscopy NONE NRG Mucus detection in urine sediment by light microscopy LARGE NRG Complete urinalysis with reflex to culture NO NRG Complete blood count (CBC) with automate d white blood cell (WBC) differential - 05/24/17 01:05 Blood leukocytes automated count (number/volume) 13.3 10*3/uL 4.3-11.0 Blood erythrocytes automated count (number/volume) 4.80 10*6/uL 4.35-5.85 Venous blood hemoglobin measurement (mass/volume) 13.3 g/dL 11.5-16.0 Blood hematocrit (volume fraction) 41 % 35-52 Automated erythrocyte mean corpuscular volume 84 [ foz_us] 80-99 Automated erythrocyte mean corpuscular h emoglobin (mass per erythrocyte) 28 pg 25-34 Automated erythrocyte mean corpuscular h emoglobin concentration measurement (mass/volume) 33 g/dL 32-36 Automated erythrocyte distribution width ratio 13. 9 % 10.0- 14.5 Automated blood platelet count (count/volume) 325 10*3/uL 130-400 Automated blood platelet mean volume measurement 10.4 [foz_us] 7.4-10.4 Automated blood neutrophils/100 leukocytes 62 % 42-75 Automated blood lymphocytes/100 leukocytes 30 % 12-44 Blood monocytes/100 leukocytes 6 % 0-12 Automated blood eosinophils/100 leukocytes 2 % 0-10 Automated blood basophils/100 leukocytes 0 % 0-10 Blood neutrophils automated count (number/volume) 8.2 10*3 1.8-7.8 Blood lymphocytes automated count (number/volume) 4.0 10*3 1.0-4.0 Blood monocytes automated count (number/volume) 0. 8 10*3 0.0-1.0 Automated eosinophil count 0.3 10*3/uL 0 .0-0.3 Automated blood basophil count (count/volume) 0.0 10*3/uL 0.0-0.1 Comprehensive metabolic panel - 05/24/17 01:05 Serum or plasma sodium measurement (moles/volume) 140 mmol/L 135-145 Serum or plasma potassium measurement (moles/volume) 4.1 mmol/L 3.6-5.0 Serum or plasma chloride measurement (moles/volume) 108 mmol/L 98-107 Carbon dioxide 21 mmol/L 21-32 Serum or plasma anion gap determination (moles/volume) 11 mmol/L 5-14 Serum or plasma urea nitrogen measurement (mass/volume ) 12 mg/dL 7-18 Serum or plasma creatinine measurement (mass/volume) 0.75 mg/dL 0.60-1.30 Serum or plasma urea nitrogen/creatinine mass ratio 16 NRG Serum or plasma creatinine measurement w ith calculation of estimated glomerular filtration rate > NRG Serum or plasma glucose measurement (mass/volume) 117 mg/dL 70-105 Serum or plasma calcium measurement (mass/volume) 9.4 mg/dL 8.5-10.1 Serum or plasma total bilirubin measurement (mass/volu me) 0.3 mg/dL 0.1-1.0 Serum or plasma alkaline phosphatase rashawn surement (enzymatic activity/volume) 86 U/L 40-136 Serum or plasma aspartate aminotransfera se measurement (enzymatic activity/volume) 14 U/L 5-34 Serum or plasma alanine aminotransferase measurement (enzymatic activity/volume) 15 U/L 0-55 Serum or plasma protein measurement (mass/volume) 7.1 g/dL 6.4-8.2 Serum or plasma albumin measurement (mass/volume) 3.9 g/dL 3.2-4.5 Serum or plasma amylase measurement (enz ymatic activity/volume) - 05/24/17 01:05 Serum or plasma amylase measurement (enzymatic activit y/volume) 53 U/L 25-125 Lipase - 05/24/17 01:05 Lipase 26 U/L 8-78 Influenza virus A and B antigen detectio n - 04/30/19 04:12 CALL POSITIVES (F1 HELP) CALLED TO [facility] IN ER @ 04 33 NR FLU RESULT POSITIVE FOR INFLUENZA B ANT IGEN, NEG FOR A ANTIGEN, BY [facility] Complete blood count (CBC) with automate d white blood cell (WBC) differential - 04/30/19 04:30 Blood leukocytes automated count (number/volume) 5.6 10*3/uL 4.3-11.0 Blood erythrocytes automated count (number/volume) 4.78 10*6/uL 4.35-5.85 Venous blood hemoglobin measurement (mass/volume) 13.2 g/dL 11.5-16.0 Blood hematocrit (volume fraction) 40 % 35-52 Automated erythrocyte mean corpuscular volume 84 [ foz_us] 80-99 Automated erythrocyte mean corpuscular h emoglobin (mass per erythrocyte) 28 pg 25-34 Automated erythrocyte mean corpuscular h emoglobin concentration measurement (mass/volume) 33 g/dL 32-36 Automated erythrocyte distribution width ratio 14. 1 % 10.0- 14.5 Automated blood platelet count (count/volume) 209 10*3/uL 130-400 Automated blood platelet mean volume measurement 10.4 [foz_us] 7.4-10.4 Automated blood neutrophils/100 leukocytes 52 % 42-75 Automated blood lymphocytes/100 leukocytes 37 % 12-44 Blood monocytes/100 leukocytes 9 % 0-12 Automated blood eosinophils/100 leukocytes 2 % 0-10 Automated blood basophils/100 leukocytes 0 % 0-10 Blood neutrophils automated count (number/volume) 2.9 10*3 1.8-7.8 Blood lymphocytes automated count (number/volume) 2.1 10*3 1.0-4.0 Blood monocytes automated count (number/volume) 0. 5 10*3 0.0-1.0 Automated eosinophil count 0.1 10*3/uL 0 .0-0.3 Automated blood basophil count (count/volume) 0.0 10*3/uL 0.0-0.1 Serum or plasma choriogonadotropin (preg winsome test) detection - 04/30/19 04:30 Serum or plasma choriogonadotropin ( test) de tection NEGATIVE NEGATIVE Comprehensive metabolic panel - 04/30/19 04:30 Serum or plasma sodium measurement (moles/volume) 139 mmol/L 135-145 Serum or plasma potassium measurement (moles/volume) 3.8 mmol/L 3.6-5.0 Serum or plasma chloride measurement (moles/volume) 108 mmol/L 98-107 Carbon dioxide 20 mmol/L 21-32 Serum or plasma anion gap determination (moles/volume) 11 mmol/L 5-14 Serum or plasma urea nitrogen measurement (mass/volume ) 4 mg/dL 7-18 Serum or plasma creatinine measurement (mass/volume) 0.77 mg/dL 0.60-1.30 Serum or plasma urea nitrogen/creatinine mass ratio 5 NRG Serum or plasma creatinine measurement w ith calculation of estimated glomerular filtration rate > NRG Serum or plasma glucose measurement (mass/volume) 103 mg/dL 70-105 Serum or plasma calcium measurement (mass/volume) 9.7 mg/dL 8.5-10.1 Serum or plasma total bilirubin measurement (mass/volu me) 0.3 mg/dL 0.1-1.0 Serum or plasma alkaline phosphatase rashawn surement (enzymatic activity/volume) 75 U/L 40-136 Serum or plasma aspartate aminotransfera se measurement (enzymatic activity/volume) 19 U/L 5-34 Serum or plasma alanine aminotransferase measurement (enzymatic activity/volume) 19 U/L 0-55 Serum or plasma protein measurement (mass/volume) 6.8 g/dL 6.4-8.2 Serum or plasma albumin measurement (mass/volume) 4.0 g/dL 3.2-4.5 CALCIUM CORRECTED 9.7 mg/dL 8.5-10.1 Serum or plasma C reactive protein measu rement (mass/volume) - 04/30/19 04:30 Serum or plasma C reactive protein measurement (mass/v olume) 1.45 mg/dL 0.00-0.50 Complete urinalysis with reflex to cultu re - 07/02/19 02:55 Urine color determination YELLOW NRG Urine clarity determination CLOUDY NR G Urine pH measurement by test strip 7.0 5-9 Specific gravity of urine by test strip 1.020 1.016-1.022 Urine protein assay by test strip, semi-quantitative NEGATIVE NEGATIVE Urine glucose detection by automated test strip NE GATIVE NEGATIVE Erythrocytes detection in urine sediment by light micr oscopy NEGATIVE NEGATIVE Urine ketones detection by automated test strip NE GATIVE NEGATIVE Urine nitrite detection by test strip NEGATIVE NEGATIVE Urine total bilirubin detection by test strip NEGA TIVE NEGATIVE Urine urobilinogen measurement by automated test strip (mass/volume) 0.2 mg/dL < = 1.0 Urine leukocyte esterase detection by dipstick 2+ NEGATIVE Automated urine sediment erythrocyte cou nt by microscopy (number/high power field) NONE NRG Automated urine sediment leukocyte count by microscopy (number/high power field) [HPF] NRG Bacteria detection in urine sediment by light microsco py LARGE NRG Squamous epithelial cells detection in u rine sediment by light microscopy 5-10 NRG Crystals detection in urine sediment by light microsco py NONE NRG Casts detection in urine sediment by light microscopy NONE NRG Mucus detection in urine sediment by light microscopy MODERATE NRG Complete urinalysis with reflex to culture YES NRG Complete blood count (CBC) with automate d white blood cell (WBC) differential - 07/02/19 03:10 Blood leukocytes automated count (number/volume) 14.8 10*3/uL 4.3-11.0 Blood erythrocytes automated count (number/volume) 5.00 10*6/uL 4.35-5.85 Venous blood hemoglobin measurement (mass/volume) 13.9 g/dL 11.5-16.0 Blood hematocrit (volume fraction) 43 % 35-52 Automated erythrocyte mean corpuscular volume 86 [ foz_us] 80-99 Automated erythrocyte mean corpuscular h emoglobin (mass per erythrocyte) 28 pg 25-34 Automated erythrocyte mean corpuscular h emoglobin concentration measurement (mass/volume) 32 g/dL 32-36 Automated erythrocyte distribution width ratio 14. 0 % 10.0- 14.5 Automated blood platelet count (count/volume) 335 10*3/uL 130-400 Automated blood platelet mean volume measurement 10.4 [foz_us] 7.4-10.4 Automated blood neutrophils/100 leukocytes 60 % 42-75 Automated blood lymphocytes/100 leukocytes 31 % 12-44 Blood monocytes/100 leukocytes 7 % 0-12 Automated blood eosinophils/100 leukocytes 2 % 0-10 Automated blood basophils/100 leukocytes 0 % 0-10 Blood neutrophils automated count (number/volume) 8.9 10*3 1.8-7.8 Blood lymphocytes automated count (number/volume) 4.6 10*3 1.0-4.0 Blood monocytes automated count (number/volume) 1. 0 10*3 0.0-1.0 Automated eosinophil count 0.3 10*3/uL 0 .0-0.3 Automated blood basophil count (count/volume) 0.0 10*3/uL 0.0-0.1 Comprehensive metabolic panel - 07/02/19 03:10 Serum or plasma sodium measurement (moles/volume) 140 mmol/L 135-145 Serum or plasma potassium measurement (moles/volume) 3.7 mmol/L 3.6-5.0 Serum or plasma chloride measurement (moles/volume) 108 mmol/L 98-107 Carbon dioxide 23 mmol/L 21-32 Serum or plasma anion gap determination (moles/volume) 9 mmol/L 5-14 Serum or plasma urea nitrogen measurement (mass/volume ) 7 mg/dL 7-18 Serum or plasma creatinine measurement (mass/volume) 0.80 mg/dL 0.60-1.30 Serum or plasma urea nitrogen/creatinine mass ratio 9 NRG Serum or plasma creatinine measurement w ith calculation of estimated glomerular filtration rate > NRG Serum or plasma glucose measurement (mass/volume) 92 mg/dL 70-105 Serum or plasma calcium measurement (mass/volume) 9.3 mg/dL 8.5-10.1 Serum or plasma total bilirubin measurement (mass/volu me) 0.5 mg/dL 0.1-1.0 Serum or plasma alkaline phosphatase rashawn surement (enzymatic activity/volume) 79 U/L 40-136 Serum or plasma aspartate aminotransfera se measurement (enzymatic activity/volume) 13 U/L 5-34 Serum or plasma alanine aminotransferase measurement (enzymatic activity/volume) 15 U/L 0-55 Serum or plasma protein measurement (mass/volume) 7.1 g/dL 6.4-8.2 Serum or plasma albumin measurement (mass/volume) 4.2 g/dL 3.2-4.5 CALCIUM CORRECTED 9.1 mg/dL 8.5-10.1 Lipase - 07/02/19 03:10 Lipase 37 U/L 8-78 Serum or plasma C reactive protein measu rement (mass/volume) - 07/02/19 03:10 Serum or plasma C reactive protein measurement (mass/v olume) 0.92 mg/dL 0.00-0.50 Encounters ACCT No. Visit Date/Time Discharge Status Pt. Type Provider Facility Loc./Unit Complaint [id number] 04/30/2019 03:59:00 020 05:46:00 DIS Outpatient SHAHANA PATEL MD [facility] ER UPPER ABD PAIN, COUGH [id number] 04/12/2018 12:09:00 018 13:28:00 DIS Emergency ROEBRT MARTINEZ [facility] ER TOOTH PAIN [id number] 05/24/2017 00:28:00 018 02:16:00 DIS Emergency AMIRAH NUGENT DO [facility] ER AB PAIN [id number] 08/15/2015 06:15:00 016 17:50:00 DIS Inpatient LINDA PAREDES MD [facility] LDRP [id number] 08/14/2015 11:36:00 016 12:05:00 DIS Outpatient LINDA PAREDES MD [facility] PREOP [id number] 08/01/2015 11:56:00 016 23:59:59 CLS Outpatient LINAD PAREDES MD [facility] LABNPT [id number] 04/18/2015 15:04:00 016 23:59:59 CLS Outpatient WALLACE ESPINOSA MD [facility] RAD [id number] 01/05/2015 13:41:00 23:59:59 CLS Outpatient WALLACE ESPINOSA MD [facility] RAD [id number] 12/29/2014 19:30:00 21:47:00 DIS Emergency JACQUELIN ROSALES APRN [facility] ER [id number] 09/22/2014 01:04:00 03:11:00 DIS Emergency ANDRE HERNANDEZ DO [facility] ER [id number] 12/07/2012 16:35:00 013 23:59:59 CLS Emergency SIGRID BEAN, SAMIR Marroquin [facility] ER [id number] 10/17/2012 22:36:00 013 23:45:00 DIS Emergency DG BEAN, BRIAN Kendall [facility] ER [id number] 07/02/2019 03:14:00 Document Registration [id number] 09/22/2014 01:56:00 Document Registration [id number] 01/15/2011 19:43:00 Document Registration [id number] 11/11/2010 21:55:00 Document Registration [id number] 09/05/2010 13:51:00 Document Registration [id number] 07/26/2010 21:30:00 Document Registration [id number] 06/06/2010 09:52:00 Document Registration [id number] 05/30/2010 19:23:00 Document Registration [id number] 01/20/2010 21:01:00 Document Registration [id number] 01/16/2010 22:04:00 Document Registration
--- NOTE | 2019-07-02 06:15 | NUR ---
KYLER SANTORO admitted to room 419-1, with an admitting diagnosis of CHOLECYSTITIS WITH CHOLECLITHIASIS, on 07/02/19 from ED via , accompanied by .KYLER SANTORO introduced to surroundings, call light, bed controls, phone, TV, temperature control, lights, meal times, smoking policy, visitor policy, side rail policy, bathrooms and showers. Patient Rights given to patient in the handbook. KYLER SANTORO verbalizes understanding that [facility] is not responsible for the loss or damage to any personal effects or valuables that are kept in the patients posession during their hospitalization.KYLER SANTORO verbalizes understanding of Interdisciplinary Patient Education. Patient and/or family were informed about the Rapid Response Team and its purpose.
[2019-07-02] MEDS ORDERED: LACTATED RINGERS 1,000 ML IV ONE (06:28)
[2019-07-02] MEDS ORDERED: PROMETHAZINE INJ 25 MG/ML (PHENERGAN) AMP IV PRN (07:00)
[2019-07-02] MEDS ORDERED: fentaNYL INJECTION 100 MCG/2 ML AMP IV PRN (07:00)
[2019-07-02] MEDS ORDERED: ONDANSETRON 4 MG/2 ML (SDV) Z0FRAN IV PRN (07:00)
[2019-07-02] MEDS ORDERED: LACTATED RINGERS 1,000 ML IV SCH (07:00)
[2019-07-02] MEDS ORDERED: KETOROLAC 15 MG/ML VIAL IV PRN (07:00)
--- NOTE | 2019-07-02 07:18 | Diagnostic Imaging Report ---
PROCEDURE: CT abdomen and pelvis with contrast. TECHNIQUE: Multiple contiguous axial images were obtained through the abdomen and pelvis after administration of intravenous contrast. Auto Exposure Controls were utilized during the CT exam to meet ALARA standards for radiation dose reduction. INDICATION: Left upper quadrant pain. COMPARED: 05/24/2017 FINDINGS: The gallbladder wall is mildly thickened and likely edematous. There is some mucosal hyperemia and hyperenhancement of its luminal surface. At this exam, no demonstrable stone, no bile duct dilatation. Pancreas appeared unremarkable. The adrenals negative. The kidneys unobstructed. The spleen within normal limits. There is no ascites, abscess hematoma or acute fluid collection. The appendix visualized and normal. The uterus, adnexa and urinary bladder appeared unremarkable. There is no mesenteric or retroperitoneal adenopathy no acute bony pathology. The lung bases negative. IMPRESSION: 1. Probable gallbladder wall thickening in the mucosal hyperemia, no visualized stone or gallbladder dilatation, no biliary ductal distention correlation with the gallbladder ultrasound recommended. 2. No other potential acute finding. Dictated by: Dictated on workstation # [id number]
--- NOTE | 2019-07-02 09:41 | History & Physical-Surgical ---
History of Present Illness History of Present Illness Reason for visit/HPI Surgery asked to evaluate and admit pt for Acute Cholecystitis. HPI per ED: Patient presents ER by private conveyance with chief complaint of epigastric and right upper quadrant abdominal pain starting about 12:30, 2-1/2 hours prior to arrival. She's having some nausea as well as diarrhea but no vomiting. No fevers or chills. She was diagnosed with all stones 2 years ago and sent to follow-up with the local general surgeon. She says she never followed up because she did not have insurance. She says it intermittently affects her about once a month and she had an episode a few days ago after eating salad. She had salad again last night and then had symptoms. She took some Gas-X as well as omeprazole with little relief of her symptoms. She says tonight it is about a 5 out of 10 at rest but it spikes to about a 10 out of 10 especially if palpated. She does follow up with Dr. Hamm for primary care. She does not take any medicines or control routinely. When I spoke to pt she states this RUQ pain has been increasing in frequency over the past few weeks. She denies radiation of pain; "it just sits there". She states that 1-2 years ago she saw Dr. Hermosillo in the ER and doesn't think US was done; thought it was CT and was told she had gallstones. Date of Admission Jul 02, 2019 at 05:45 Time Seen by a Provider: 09:06 I consulted on this patient on 07/02/19 09:34 Attending Physician Jay Munson DO Admitting Physician Kingston Hamm MD Consult Allergies and Home Medications Allergies Coded Allergies: No Known Drug Allergies (Unverified , 09/22/14) Home Medications No Active Prescriptions or Reported Meds Patient Home Medication List Home Medication List Reviewed: Yes Past Sxhxfot-Cmqnsx-Eulgmn Hx Patient Social History Alcohol Use: Rarely Uses Number of Drinks Today: AA Recreational Drug Use: No Smoking Status: Current Everyday Smoker (1/2 ppd for 14 years) Type Used: Cigarettes 2nd Hand Smoke Exposure: Yes Recent Foreign Travel: No Contact w/Someone Who Travel: No Recent Infectious Disease Expo: No Recent Hopitalizations: No Immunizations Up To Date Tetanus Booster (TDap): Less than 5yrs PED Vaccines UTD: Yes Seasonal Allergies Seasonal Allergies: No Surgeries History of Surgeries: Yes (D&C; X 2) Surgeries: Section Respiratory History of Respiratory Disorde: No Cardiovascular History of Cardiac Disorders: No Neurological History of Neurological Disord: No Reproductive System : No Hx Reproductive Disorders: No Female Reproductive Disorders: Denies Genitourinary History of Genitourinary Disor: No Gastrointestinal History of Gastrointestinal Di: No Musculoskeletal History of Musculoskeletal Dis: No Endocrine History of Endocrine Disorders: No HEENT History of HEENT Disorders: No Cancer History of Cancer: No Psychosocial History of Psychiatric Problem: No Integumentary History of Skin or Integumenta: No Blood Transfusions History of Blood Disorders: No Family Medical History Significant Family History: Heart Disease, Cancer (Mother had Breast CA), Diabetes (Uncle and Grandfather) Family Medial History: Alcoholism grandparents Cardiovascular disease grandparents Diabetes mellitus grandparents FH: breast cancer 19 MOTHER Hypertension grandparents Review of Systems Constitutional: No chills, No diaphoresis, No dizziness EENTM: No blurred vision, No double vision, No mouth pain, No mouth swelling, No epistaxis Respiratory: No cough, No dyspnea on exertion, No hemoptysis Cardiovascular: No chest pain, No edema, No palpitations Gastrointestinal: abdominal pain; No jaundice; nausea; No vomiting Genitourinary: No dysuria, No frequency, No hematuria Musculoskeletal: No joint pain, No joint swelling, No muscle stiffness Skin: No change in color, No change in hair/nails Psychiatric/Neurological: Denies Anxiety, Denies Depressed, Denies Seizure, Denies Tremors pt denies any hx of abnormal bleeding or bruising Physical Exam Vital Signs Vital Signs - First Documented 07/02/19 02:48 Temp 36.6 Pulse 86 Resp 18 B/P (MAP) 136/97 (110) Pulse Ox 98 O2 Delivery Room Air Capillary Refill : Less Than 3 Seconds Height, Weight, BMI Height: 5'5.00" Weight: 220lbs. 0oz. 99.350703ty; 39.51 BMI Method:Stated General Appearance: WD/WN, Mild Distress Eyes: Bilateral Eye PERRL, Bilateral Eye EOMI HEENT: Pharynx Normal, Moist Mucous Membranes; No Scleral Icterus (L), No Scleral Icterus (R) Neck: Full Range of Motion, Non Tender, Supple Respiratory: Lungs Clear, Normal Breath Sounds, No Accessory Muscle Use, No Respiratory Distress Cardiovascular: Regular Rate, Rhythm, No Murmur Gastrointestinal: Normal Bowel Sounds, No Organomegaly; No Distended; Guarding (voluntary with deep palpation), Tenderness (RUQ) Rectal: Deferred Back: No CVA Tenderness, No Vertebral Tenderness Extremity: Normal Capillary Refill, Normal Inspection, Normal Range of Motion, Non Tender, No Calf Tenderness Neurologic/Psychiatric: Oriented x3, Normal Mood/Affect, ornamental painter II-XII Norm as Tested Skin: Normal Color, Warm/Dry Lymphatic: No Adenopathy (neck, axilla or groin) Data Review Labs Laboratory Tests 07/02/19 02:55: Urine Color YELLOW, Urine Clarity CLOUDY, Urine pH 7.0, Urine Specific [place] 1.020, Urine Protein NEGATIVE, Urine Glucose (UA) NEGATIVE, Urine Ketones NEGATIVE, Urine Nitrite NEGATIVE, Urine Bilirubin NEGATIVE, Urine Urobilinogen 0.2, Urine Leukocyte Esterase 2+H, Urine RBC (Auto) NEGATIVE, Urine RBC NONE, Urine WBC 2-5, Urine Squamous Epithelial Cells 5-10, Urine Crystals NONE, Urine Bacteria LARGEH, Urine Casts NONE, Urine Mucus MODERATEH, Urine Culture Indicated YES 07/02/19 03:10: White Blood Count 14.8H, Red Blood Count 5.00, Hemoglobin 13.9, Hematocrit 43, Mean Corpuscular Volume 86, Mean Corpuscular Hemoglobin 28, Mean Corpuscular Hemoglobin Concent 32, Red Cell Distribution Width 14.0, Platelet Count 335, Mean Platelet Volume 10.4, Neutrophils (%) (Auto) 60, Lymphocytes (%) (Auto) 31, Monocytes (%) (Auto) 7, Eosinophils (%) (Auto) 2, Basophils (%) (Auto) 0, Neutrophils # (Auto) 8.9H, Lymphocytes # (Auto) 4.6H, Monocytes # (Auto) 1.0, Eosinophils # (Auto) 0.3, Basophils # (Auto) 0.0, Sodium Level 140, Potassium Level 3.7, Chloride Level 108H, Carbon Dioxide Level 23, Anion Gap 9, Blood Urea Nitrogen 7, Creatinine 0.80, Estimat Glomerular Filtration Rate > 60, BUN/Creatinine Ratio 9, Glucose Level 92, Calcium Level 9.3, Corrected Calcium 9.1, Total Bilirubin 0.5, Aspartate Amino Transf (AST/SGOT) 13, Alanine Aminotransferase (ALT/SGPT) 15, Alkaline Phosphatase 79, C-Reactive Protein High Sensitivity 0.92H, Total Protein 7.1, Albumin 4.2, Lipase 37 Radiology Date of Exam:07/02/19 CT ABDOMEN/PELVIS W PROCEDURE: CT abdomen and pelvis with contrast. TECHNIQUE: Multiple contiguous axial images were obtained through the abdomen and pelvis after administration of intravenous contrast. Auto Exposure Controls were utilized during the CT exam to meet ALARA standards for radiation dose reduction. INDICATION: Left upper quadrant pain. COMPARED: 05/24/2017 FINDINGS: The gallbladder wall is mildly thickened and likely edematous. There is some mucosal hyperemia and hyperenhancement of its luminal surface. At this exam, no demonstrable stone, no bile duct dilatation. Pancreas appeared unremarkable. The adrenals negative. The kidneys unobstructed. The spleen within normal limits. There is no ascites, abscess hematoma or acute fluid collection. The appendix visualized and normal. The uterus, adnexa and urinary bladder appeared unremarkable. There is no mesenteric or retroperitoneal adenopathy no acute bony pathology. The lung bases negative. IMPRESSION: 1. Probable gallbladder wall thickening in the mucosal hyperemia, no visualized stone or gallbladder dilatation, no biliary ductal distention correlation with the gallbladder ultrasound recommended. 2. No other potential acute finding. Dictated on workstation # [id number] Dict: 07/02/1918 Trans: 07/02/19 0717 CV [id number] Interpreted by: RADHA ADLER Electronically signed by: Assessment/Plan Assessment/Plan Admission Diagonsis Acute Cholecystitis with suspected Cholelithiasis Admission Status: Other (Same Day Surgery) Assessment/Plan Acute Cholecystitis with suspected Cholelithiasis Pt has an elevated WBC, pain is 10 out of 10 and I believe this is acute and plan to take pt to OR. She is NPO, on IV fluids, will get IV ABX 1/2 hour prior to OR and will get consent for Laparoscopic Cholecystectomy with possible cholangiogram, possible open. I went over the procedure with pt including risks and complications not limited to pain, bleeding, infection, scar, damage to bowel or bile duct and need for further procedure. All questions answered to her satisfaction. Plan to send home after procedure as long as it goes well. Clinical Quality Measures DVT/VTE Risk/Contraindication: Risk Factor Score Per Nursin RFS Level Per Nursing on Admit: 1=Low/No VTE PPX JAY MUNSON DO Jul 02, 2019 09:41
[2019-07-02] MEDS ORDERED: BUP/EPI 0.5% 1:200,000 (SENSORCAINE) 30 ML VIAL ONE (10:40)
[2019-07-02] MEDS ORDERED: LACTATED RINGERS 1,000 ML IV PRN (10:44)
[2019-07-02] MEDS ORDERED: fentaNYL INJECTION 100 MCG/2 ML AMP IVP ONE (10:45)
[2019-07-02] MEDS ORDERED: MEPERIDINE (DEMEROL) INJ 50 MG/ML IVP ONE (10:45)
[2019-07-02] MEDS ORDERED: morphine INJ 10 MG/ML 1ML (SYR OR VIAL) IVP ONE (10:45)
[2019-07-02] MEDS ORDERED: ceFAZolin 2 GM IV Premixed 50 ML ONE (10:48)
[2019-07-02] MEDS ORDERED: fentaNYL INJECTION 100 MCG/2 ML AMP ONE (10:51)
[2019-07-02] MEDS ORDERED: MIDAZOLAM 2 MG/2 ML (VERSED) VIAL ONE (10:52)
[2019-07-02] MEDS ORDERED: LIDOCAINE PF 2% 5 ML (XYLOCAINE) VIAL ONE (11:11)
[2019-07-02] MEDS ORDERED: ROCURONIUM 10 MG/ML 5 ML SYRINGE IV ONE (11:11)
[2019-07-02] MEDS ORDERED: proPOfol 200 MG/20 ML (DIPRIVAN) VIAL IV ONE (11:11)
[2019-07-02] MEDS ORDERED: SEVOFLURANE (ULTANE) 15 ML INHAL SOLN ONE (11:11)
[2019-07-02] MEDS ORDERED: ONDANSETRON 4 MG/2 ML (SDV) Z0FRAN ONE (11:11)
[2019-07-02] MEDS ORDERED: morphine INJ 10 MG/ML 1ML (SYR OR VIAL) ONE (11:22)
[2019-07-02] MEDS ORDERED: NEOSTIGMINE 3 MG/3 ML VIAL ONE (11:43)
[2019-07-02] MEDS ORDERED: GLYCOPYRROLATE 0.2 MG/ML (ROBINUL) 2 ML VIAL ONE (11:43)
--- NOTE | 2019-07-02 12:00 | Operative Report ---
Operative Report Date of Procedure/Surgery Jul 02, 2019 Surgeon (s) WEI MUNSON DO [employer] Supervisor (s): SRINIVASAN Post-Operative Diagnosis Acute Cholecystitis/Cholelithiasis Procedure Performed Lap gabe with IOC Description of Procedure Anesthesia Type: General Estimated blood loss (mL): scant Specimen(s) collected/removed GB and contents Description of the Procedure PROCEDURE: Laparoscopic cholecystectomy with intraoperative cholangiogram. COMPLICATIONS: None. PROCEDURE: The patient was taken to the operating suite and was prepped and draped in sterile fashion. A surgical pause was performed. Just superior to the umbilicus, a 12 mm incision was made. Dissection was taken down to the fascia, which was then scored and grasped with a Yuli and the abdomen was then entered. An 0 Vicryl suture was placed in a [id number] fashion and a Mistry trocar was placed and secured. Pneumoperitoneum was achieved. A 5mm trochar place in the subxyphoid and 2 in the right upper quadrant. The gallbladder was then grasped and elevated. The cystic duct, and cystic artery were then dissected out. Clip was placed on the distal portion of the cystic duct which was then partially transected. An arrow catheter was inserted into the duct. The cholangiogram was then performed. No filing defects and contrast made its way into the duodenum. Catheter removed. Clips were placed on proximal portion of the cystic duct and then the duct was then transected. Clips were placed along the proximal and distal portion of the cystic artery which was then transected. A posterior branch of the cystic artery was encountered and clipped as well. Hook cautery was used to dissect the gallbladder from the gallbladder fossa achieving hemostasis. The gallbladder was placed in an Endobag and removed through the 12 mm trocar site. The abdomen was then reinspected. Copious amounts of irrigation were used to irrigate the abdomen and there were no signs of active bleeding. Hemostasis had been achieved. The abdomen was then desufflated, the trocars were removed. The 12 mm fascial defect was then closed with 0 Vicryl suture that had been placed in a ikcgnu-[id number]-mownb fashion. The abdomen was then washed and dried. The skin was then closed using 4-0 Monocryl in a subcuticular fashion. The abdomen was washed and dried and Skin Affix was place over incisions. Patient tolerated the procedure well without any complications and was taken to the recovery room in stable condition. Findings of the Procedure GB with edema and erythema Allergies and Home Medications Allergies Coded Allergies: No Known Drug Allergies (Unverified , 09/22/14) Home Medications No Active Prescriptions or Reported Meds Patient Home Medication List Home Medication List Reviewed: Yes WEI MUNSON DO Jul 02, 2019 12:00
--- NOTE | 2019-07-02 12:01 | Diagnostic Imaging Report ---
Indication: Cholecystectomy. Findings: 18 seconds of actual fluoroscopy time utilized during laparoscopic cholecystectomy. Submitted images showed contrast injection opacifying the extrahepatic duct spilling into the duodenum. No filling defect or stricture identified. Impression: Fluoroscopy utilized during intraoperative cholangiography, the images submitted revealed no pathological finding. Dictated by: Dictated on workstation # [id number]
[2019-07-02] MEDS: ONDANSETRON 4 MG/2 ML (SDV) Z0FRAN IVP PRN ×2 (12:29→12:47)
--- NOTE | 2019-07-02 13:00 | NUR ---
PT BACK TO ROOM FROM RECOVERY. DENIES ANY PAIN BUT REPORTS LITTLE DISCOMFORT TO ABDOMEN. ICE CHIPS OFFERED. VSS. PT RESTING WITH EYES CLOSED.
[2019-07-02] MEDS ORDERED: HYDR-4226 PO (13:15)
--- NOTE | 2019-07-02 13:16 | Discharge Inst-Surgical ---
Discharge Inst-Surgical Reconcile Patient Problems Problems Reviewed?: Yes Depart Medication/Instructions New, Converted or Re-Newed RX: RX Given to Pt/Family Patient Instructions Follow up Appt: Make appointment for 1 week. [phone] Instructions: No lifting greater than 20 pounds. No strenuous activity. May shower in 24 hours, no tub bath or soaking. Use incentive spirometer at home as directed. No Smoking Skin/Wound Care: May remove bandages in am. You need to leave the Dermabond on incision it will fall off on it's own. Symptoms to Report: Appetite Changes, Extremity Discoloration, Numbness/Tingling, Swelling Increased, Bleeding Excessive, Eyesight Changes, Pain Increased, Urine Color Change, Constipation(Persistent), Fever over 101 degree F, Pain/Pressure in chest, Urinating Difficulty, Cough Up/Vomit Blood, Heart Beat Irreg/Pounding, Pain/Pressure in jaw, Cramps in feet or legs, Lightheadedness, Pain/Pressure in shoulder, Diarrhea(Persistent), Memory Changes Suddenly, Questions/Concerns, Weight gain consecutive days, Dizziness/Fainting, Nausea/Vomiting, Shortness of Breath, Weight gain over 2 pounds If questions or concerns contact your physician Or seek help at emergency department. Activity Activity as Tolerated: Yes Activity Instructions: Avoid Stress to Incision Driving Instructions: No Driving/Refer to Diet Discharge Diet: Avoid Fatty Foods, Low Fat/Low Cholesterol Diet After 24 Hours: Clear Liquid if Nauseous If Any Problems/Questions/Issu: Contact Your Physician, Go to Emergency Room Skin/Wound Care Infection Signs and Symptoms: Increased Redness, Foul Odor of Wound, Increased Drainage, Skin Itchy or Has a Rash, Increased Swelling, Temperature Above 101 F Wound Care Comment: heating pad to shoulder or neck tonight for pain Bathing Instructions: Shower Stitches/Julianna/Dermabond Dis: Dermabond Ice Pack: Ice On and Off Site WEI MUNSON DO Jul 02, 2019 13:16
[2019-07-02] MEDS ORDERED: HYDROcodone/APAP 5 MG/325 MG (LORTAB) TAB PO PRN (14:30)
--- NOTE | 2019-07-03 18:02 | Anesthesia-General Post-Op ---
General Patient Condition Mental Status/LOC: Same as Preop Cardiovascular: Satisfactory Nausea/Vomiting: Absent Respiratory: Satisfactory Pain: Controlled Complications: Absent Post Op Complications Complications None Follow Up Care/Instructions Patient Instructions None needed. Anesthesia/Patient Condition Patient Condition Patient is doing well, no complaints, stable vital signs, no apparent adverse anesthesia problems. No complications reported per nursing. ANABELLA JESUS CRNA Jul 03, 2019 18:02
== END 2019-07-02 16:55 | disposition home or self-care (01) ==
LOC: EDUNIT# 02:37 → ER 02:42 → 4TH 05:45
PROVIDERS: ADMIT Surgery; ATTEND Surgery
DX: K80.12 Calculus of gallbladder with acute and chronic cholecystitis without obstruction (principal); Z11.2 Encounter for screening for other bacterial diseases; F17.210 Nicotine dependence, cigarettes, uncomplicated
CPT/HCPCS: 36415; 74177; 80053; 81000; 83690; 84703; 85025; 86141; 87081; 87088; 88304; 96361; 96374

== ENCOUNTER 2020-10-13 22:07 | Emergency (ER) | payer SELFPAY ==
[~2020-10-13] VITALS: Ht 165 cm; Wt 104.0 kg
[~2020-10-13 22:07] MED LIST changes: +HYDR-4226 PO; -OXYC-465 PO; +OXYC-556 PO
[2020-10-13 22:21] VITALS: BP 145/97
--- NOTE | 2020-10-13 23:03 | ED Neck-Back Pain/Injury ---
General Chief Complaint: Head/Cervical Problems Stated Complaint: NECK PAIN Nursing Triage Note: PT ARRIVES TO ER WITH C/O NECK PAIN. PT STATES SHE ALWAYS GETS PAIN IN HER NECK WHEN SHE HAS A HEAD COLD. THE PAIN GETS BETTER WITH REST AND WORSE WITH MOVEMENT Source of Information: Patient Exam Limitations: No Limitations History of Present Illness Date Seen by Provider: Oct 13, 2020 Time Seen by Provider: 22:38 Initial Comments Patient to the ER by private conveyance from home with right-sided neck stiffness and pain. She says she gets this with a cold about 3 times a year. She had a cold last week and had a negative Covid swab. No fevers chills cough runny nose presently. No shortness of air or chest pain. She has been using Tylenol and ibuprofen. Allergies and Home Medications Allergies Coded Allergies: No Known Drug Allergies (Unverified , 09/22/14) Home Medications Hydrocodone/Acetaminophen 1 Each Tablet, 1 TAB PO Q6H Prescribed by: WEI MUNSON on 07/02/19 1315 Patient Home Medication List Home Medication List Reviewed: Yes Review of Systems Constitutional: No chills, No diaphoresis EENTM: No ear discharge, No ear pain Respiratory: No cough, No short of breath Cardiovascular: No chest pain, No edema Gastrointestinal: No abdominal pain, No nausea Genitourinary: No dysuria, No frequency Musculoskeletal: neck pain All Other Systems Reviewed Negative Unless Noted: Yes Past Uuecpub-Aggtfk-Yazdve Hx Patient Social History Tobacco Use?: Yes Tobacco type used: Cigarettes Smoking Status: Current Everyday Smoker Smokeless Tobacco Frequency: Never a User Use of E-Cig and/or Vaping dev: No Alcohol Use?: Yes Alcohol Frequency: Several times a month Pt feels they are or have been: No Immunizations Up To Date Tetanus Booster (TDap): Less than 5yrs PED Vaccines UTD: Yes Seasonal Allergies Seasonal Allergies: No Past Medical History Surgeries: Yes (D&C; X 2) Section Respiratory: No Cardiac: No Neurological: No Reproductive Disorders: No Female Reproductive Disorders: Denies Genitourinary: No Gastrointestinal: No Musculoskeletal: No Endocrine: No HEENT: No Cancer: No Psychosocial: No Integumentary: No Blood Disorders: No Family Medical History Alcoholism grandparents Cardiovascular disease grandparents Diabetes mellitus grandparents FH: breast cancer 19 MOTHER Hypertension grandparents Heart Disease, Cancer, Diabetes Physical Exam Vital Signs Vital Signs - First Documented 10/13/20 22:21 Temp 36.8 Pulse 84 B/P (MAP) 145/97 (113) Capillary Refill : Less Than 3 Seconds Height, Weight, BMI Height: 5'5.00" Weight: 220lbs. 0oz. 99.671469bg; 38.00 BMI Method:Stated General Appearance: No Apparent Distress, WD/WN HEENT: PERRL/EOMI, TMs Normal, Normal ENT Inspection, Pharynx Normal, Moist Mucous Membranes Neck: Full Range of Motion, Normal Inspection, Tender Lateral (Right side) Cardiovascular: Regular Rate, Rhythm, Normal Peripheral Pulses Respiratory: No Accessory Muscle Use, No Respiratory Distress Progress/Results/Core Measures Results/Orders Vital Signs/I&O 10/13/20 22:21 Temp 36.8 Pulse 84 B/P (MAP) 145/97 (113) Blood Pressure Mean: 113 Progress Progress Note : Time: 23:00 Progress Note Muscle relaxants, Toradol and Medrol Dosepak. po-Medrol Departure Impression Primary Impression: Torticollis, acute Disposition: 01 HOME, SELF-CARE Condition: Stable Departure-Patient Inst. Decision time for Depature: 23:03 Referrals: WALLACE ESPINOSA MD (PCP/Family) Primary Care Physician Patient Instructions: Torticollis (DC) Add. Discharge Instructions: Heating pads, topical creams such as icy hot or capsaicin oil. Tylenol 1000 mg every 8 hours necessary for pain. Naproxen 2 tablets twice a day as necessary for pain. Medrol Dosepak take as directed. All discharge instructions reviewed with patient and/or family. Voiced understanding. Scripts Methylprednisolone (Methylprednisolone Dose Pack) 4 Mg Tab.ds.pk 4 MG PO UD for 6 Days, #21 PKG PER DOSE PACK INSTRUCTIONS Prov: JOANNA MARTINES 10/13/20 Cyclobenzaprine HCl (Cyclobenzaprine HCl) 10 Mg Tablet 10 MG PO Q8H PRN for SPASMS, #15 TAB 0 Refills Prov: JOANNA MARTINES 10/13/20 Work/School Note: Work Release Form Date Seen in the Emergency Department: Oct 13, 2020 Return to Work: Oct 15, 2020 Restrictions: No Restrictions JOANNA MARTINES Oct 13, 2020 23:03
[2020-10-13] MEDS ORDERED: METH4TAB10 PO (23:09)
[2020-10-13] MEDS ORDERED: CYCL10TA9 PO (23:09)
== END 2020-10-13 23:15 | disposition home or self-care (01) ==
LOC: EDUNIT# 22:07 → ER 22:09
DX: M43.6 Torticollis (principal); F17.210 Nicotine dependence, cigarettes, uncomplicated; Z20.822 Contact with and (suspected) exposure to COVID-19
CPT/HCPCS: 99282